=== PATIENT | male | born 1960 | race Caucasian/White ===

== ENCOUNTER 2025-05-03 13:19 | Emergency (ER) | payer MEDICARE, MEDICAID, SELFPAY ==
--- OUTSIDE RECORDS SUMMARY | 2025-05-01 09:57 | XMS_ITS | Continuity of Care Document ---
Author [facility] Address [address] [facility] [place] [address] Phone Care Team Providers Care Senior Information Security Engineer Name Role Phone Freeze Brennan GEORGES CNP Unavailable Unavaila ble Allergies, Adverse Reactions, Alerts Substance Reaction Status Criticality No Known Allergies Active No Inform ation Medications Medication Instructions Dosage Effective Dates (start - stop) Status Comments ALBUTEROL HFA 90 MCG INHALER INHALE 2 PUFFS BY MOUTH EVERY 6 HOURS NEEDED - Active Humulin R U-500 (Concentrated) Insulin 500 unit/mL subcutaneous soln INJECT 20 UNITS UNDER THE SKIN TWO TIMES A DAY WITH A MEAL - Active Pt's requests U-500. Please dispense quantity sufficient for 90 days. CareTouch Insulin Syringe 0.5 mL 31 gauge x 5/16 Use with Humulin R U-100 BID - Active METFORMIN HCL ER 500 MG TABLET TAKE 1 TABLET BY MOUTH 2 TIMES A DAY - Active GABAPENTIN 300 MG CAPSULE TAKE 1 CAPSULE BY MOUTH DAILY - Active METFORMIN HCL 500 MG TABLET TAKE 2 TABLETS BY MOUTH DAILY WITH LUNCH - Active ATORVASTATIN 40 MG TABLET TAKE 1 TABLET BY MOUTH DAILY - Active amLODIPine BESYLATE 10MG TAB TAKE 1 TABLET BY MOUTH DAILY - Active CARVEDILOL 25 MG TABLET TAKE 1 TABLET BY MOUTH TWICE A DAY WITH FOOD - Active ALLOPURINOL 300 MG TABLET TAKE 1 TABLET BY MOUTH DAILY - Active FUROSEMIDE 40 MG TABLET TAKE 1 TABLET BY MOUTH DAILY - Active AMITRIPTYLINE HCL 25 MG TAB TAKE 1 TABLET BY MOUTH EVERY NIGHT AT BEDTIME - Active POTASSIUM CHLORIDE ER 20 MEQ TABLET TAKE ONE TABLET BY MOUTH DAILY WITH FOOD - Active JARDIANCE 25 MG TABLET TAKE 1 TABLET BY MOUTH EVERY MORNING - Active LOSARTAN POTASSIUM 25 MG TAB TAKE 1 TABLET BY MOUTH DAILY - Active Lancets,Ultra Thin Check BS ACHS and prn - Active levothyroxine 75 mcg tablet TAKE 1 TABLET BY MOUTH DAILY - Active albuterol sulfate 2.5 mg/3 mL (0.083 %) solution for nebulization INHALE 1 VIAL (3ML) BY MOUTH VIA NEBULIZER FOUR TIMES A DAY - Active amoxicillin 500 mg capsule take 4 capsule by oral route 1 hour before dental procedures - Active multivitamin tablet - Active aspirin 325 mg tablet take 1 tablet by oral route every day 325 MG - Active Procedures Procedure Date X-RAY EXAM HIP UNI 2-3 VIEWS OFFICE/OUTPATIENT VISIT, EST GLYCATED HEMOGLOBIN TEST OFFICE/OUTPATIENT VISIT, EST Complex e/m visit add on GLYCATED HEMOGLOBIN TEST OFFICE/OUTPATIENT VISIT, EST Complex e/m visit add on PPPS, initial visit TRANS CARE MGMT 14 DAY DISCH Venous Ultrasound Unilateral Doppler Arterial Lower Extre mity/Upper Extremity (Raynauds Or Thorasic Outlet) GLYCATED HEMOGLOBIN TEST OFFICE/OUTPATIENT VISIT, EST OFFICE/OUTPATIENT VISIT, EST X-RAY EXAM HIP UNI 2-3 VIEWS POSTOP FOLLOW-UP VISIT NURSING FACILITY CARE, INIT SUBSEQUENT HOSPITAL CARE TOTAL HIP ARTHROPLASTY TOTAL HIP ARTHROPLASTY INITIAL HOSPITAL CARE OFFICE/OUTPATIENT VISIT, EST SUBSEQUENT HOSPITAL CARE SUBSEQUENT HOSPITAL CARE HOSPITAL DISCHARGE DAY SUBSEQUENT HOSPITAL CARE SUBSEQUENT HOSPITAL CARE INITIAL HOSPITAL CARE SUBSEQUENT HOSPITAL CARE OFFICE/OUTPATIENT VISIT, EST Doppler Arterial Lower Extre mity/Upper Extremity (Raynauds Or Thorasic Outlet) OFFICE/OUTPATIENT VISIT, NEW LESION REMOVE COLONOSCOPY OFFICE/OUTPATIENT VISIT, NEW X-RAY EXAM OF PELVIS LESION REMOVAL COLONOSCOPY DIAGNOSTIC COLONOSCOPY OFFICE CONSULTATION NURSING [facility], SUBS DEBRIDE SKIN/TISSUE DEBRIDE SKIN/TISSUE DEBRIDE SKIN/TISSUE OFFICE/OUTPATIENT VISIT, NEW DEBRIDE SKIN/TISSUE OFFICE CONSULTATION Advance Directives Directive Yes / No Effective Date File Name No Information Encounters Encounter Description Practice Location Reason(s) For Visit Diagnoses Date Provider Providers Copied on Encounter [facility], [address] [place] [address], [id number] , tel:[phone] [facility] No Information Freeze BAR PORTER Chasaozzie. [address] [place] [address], [id number], [place]. tel:[phone], [address] [place] [address], [id number] , [place] tel:[phone] [facility] No Information Freeze BAR PORTER Chasady. [address] [place], [place], [id number], [place]. tel:[phone] [facility], [address] [place] [address], [id number] , tel:[phone] [facility] No Information 5 Freeze BAR PORTER Chasady. [address] [place] [address], [id number], [place]. tel:[phone] [facility], [address] [place] [address] [address], [place], [place], [id number] , [place] tel: [phone] [facility] No Information 5 Freeze DESTINI Amin. [address] [place] [address], [id number], [place]. tel:[phone] [facility], [address] [place] [address] B, [place], [place], [id number] , [place] tel: [phone] [facility] No Information 5 Freeze DESTINI Amin. [address] [place] [address], [id number], [place]. tel:[phone] [facility], [address] [place] [address] B, [place], [place], [id number] , [place] tel: [phone] [facility] No Information 5 Freeze DESTINI Amin. [address] [place] [address], [id number], [place]. tel:[phone] OFFICE/OUTPAT IENT VISIT, [facility], [address] [place] [address] B, [place], [place], [id number] , [place] tel: [phone] [facility] Orthopaedic s Musculoskele junior Pain (chief complaint) Trochanteric bursitis of left hipChronic left-sided low back pain, unspecified whether sciatica presentOther chronic pain 5 Natalie Mtz. [address], [place], [place], [id number], [place]. tel:[phone] Referring Provider: Brennan Easley CNP, [address] [place] [address], [address]. tel:[phone] OFFICE/OUTPAT IENT VISIT, [facility], [address] [place] [address] B, [place], [place], [id number] , [place] tel: [phone] [facility] follow up (chief complaint) Acquired hypothyroidi smType 2 diabetes mellitus with diabetic polyneuropat hy, with long-term current use of insulinChron ic gout without tophus, unspecified cause, unspecified siteAcute kidney failure, unspecifiedT ype 2 diabetes mellitus with foot ulcer, with long-term current use of insulinType 2 diabetes mellitus with hyperglycemi a, with long-term current use of insulinEssen tial (primary) hypertension Hyperlipidem ia LDL goal <100 4 Freeze DESTINI Amin. [address] [place] [address], [id number], [place]. tel:[phone] Referring Provider: Brennan Easley CNP, [address] [place] [address], [address]. tel:[phone] [facility], [address] [place] [address] B, [place], [place], [id number] , tel:[phone] [facility] No Information 4 Freeze DESTINI Amin. [address] [place] [address], [id number], [place]. tel:[phone] OFFICE/OUTPAT IENT VISIT, [facility], [address] [place] [address] B, [place], [place], [id number] , tel:[phone] [facility] follow up (chief complaint) Type 2 diabetes mellitus with foot ulcer, with long-term current use of insulinType 2 diabetes mellitus with hyperglycemi a, with long-term current use of insulinEssen tial (primary) hypertension Hyperlipidem ia LDL goal <100Acquired hypothyroidi smType 2 diabetes mellitus with diabetic polyneuropat hy, with long-term current use of insulinChron ic gout without tophus, unspecified cause, unspecified siteAcute kidney failure, unspecified Sep- 4 Freeze DESTINI Amin. [address] [place] [address], [id number], [place]. tel:[phone] Referring Provider: Brennan Easley CNP, [address] [place] [address], [address]. tel:[phone], [address] [place] [address] B, [place], [place], [id number] , [place] tel:[phone] [facility] No Information 4 Freeze DESTINI Amin. [address] [place] [address], [id number], [place]. tel:[phone] [facility], [address] [place] [address] [address], [place], [place], [id number] , [place] tel: [phone] [facility] No Information 4 Freeze DESTINI Amin. [address] [place] [address], [id number], [place]. tel:[phone] [place] [address], [address] [place] [address] [address], [place], [place], [id number] , [place] tel: [phone] [facility] ADLs (chief complaint)me dicare preventive (chief complaint) Type 2 diabetes mellitus with foot ulcer, with long-term current use of insulinType 2 diabetes mellitus with hyperglycemi a, with long-term current use of insulinEssen tial (primary) hypertension Hyperlipidem ia LDL goal <100Acquired hypothyroidi Medicare annual wellness visit, initialType 2 diabetes mellitus with diabetic polyneuropat hy, with long-term current use of insulinLong term (current) use of insulinMorbi d (severe) obesity due to excess caloriesAcut e kidney failure, unspecifiedC hronic gout without tophus, unspecified cause, unspecified site 4 Freeze DESTINI Amin. [address] [place] [address], [id number], [place]. tel:[phone] Referring Provider: Brennan Easley DESTINI, [address] [place] [address], [address]. tel:[phone] [facility] MGMT 14 DAY DISCH [facility], [address] [place] [address] [address], [place], [place], [id number] , [place] tel:[phone] [facility] TCM (chief complaint) Elevated brain natriuretic peptide (BNP) levelAbnorma l echocardiogr amSepsis with acute renal failure without septic shock, due to unspecified organism, unspecified acute renal failure typeSevere sepsis without septic shockAcute kidney failure, unspecifiedN on-pressure chronic ulcer of other part of right foot with unspecified severity 4 Tracee Amin. [address] [facility], [place], [place], [id number], [place]. tel:[phone] Referring Provider: Jazmynozzie Easley DESTINI, [address] [facility], [place], [address]. tel:[phone] [facility], [address] [facility] [address], [place], [place], [id number] , [place] tel:[phone] [facility] IP No Information 4 Chito Lyon. [address] [place] [address], [address], [place]. tel:[phone] Referring Provider: Camron Dale MD, [address] [place] [address] 2, [place], [address]. tel:[phone] [facility], [address] [facility] [address], [place], [place], [address] , [place] tel:[phone] [facility] IP No Information 4 Chito Lyon. [address], [address], [place]. tel:[phone] Referring Provider: Camron Dale MD, [address] [place] [address] 2, [place], [address]. tel:[phone] OFFICE/OUTPAT IENT VISIT, EST [employer] [facility], [address] [facility] [address], [place], [place], [id number] , [place] tel:[phone] [facility] est care (chief complaint) Type 2 diabetes mellitus with hyperglycemi a, with long-term current use of insulinLong term (current) use of insulinEssen tial (primary) hypertension Type 2 diabetes mellitus with foot ulcer, with long-term current use of insulinNon-p ressure chronic ulcer of other part of unspecified foot with unspecified severityNon- pressure chronic ulcer of other part of right foot with unspecified severityHype rlipidemia LDL goal <100Acquired hypothyroidi sm Dec-0 3 Freeze DESTINI Amin. [address] [facility], [place], [place], [id number], [place]. tel:[phone] Referring Provider: Sonijatinder Easley BAR PORTER, [address] [facility], [place], [address]. tel:[phone] [facility], [address] [place] [address] [address], [place], [place], [id number] , [place] tel:[phone] [facility] Orth[facility] No Information 3 Damon Parmar. [address] [facility] [address], [place], [place], [id number], [place]. tel:[phone] OFFICE/OUTPAT IENT VISIT, [facility], [address] [facility] [address], [place], [place], [id number] , [place] [phone] [facility] Orthopaedic s Musculoskele junior Pain (chief complaint) Left hip pain 2 Damon Parmar. [address] [facility] [address], [place], [place], [id number], [place]. tel:[phone] Referring Provider: Ghulam Finn, [address] [facility] [address], [place], [address]. tel:[phone] [facility], [address] [place] [address] [address], [place], [place], [id number] , [place] tel:[phone] [facility] s Post-Op (chief complaint) Arthritis of left hip 2 Natalie Mtz. [address] [facility] [address], [place], [place], [id number], [place]. tel:[phone] Referring Provider: Smith Estrada PA-C, [address], [place], [address]. tel:[phone] [facility], [address] [place] [address] [address], [place], [place], [id number] , [place] tel:[phone] [facility] No Information 2 Chilo FERRYBOAT OPERATOR-BAR PORTER Petra. [address] [facility] [address], [place], [place], [id number], [place]. tel:[phone] Referring Provider: Petra Woo FERRYBOAT OPERATOR-BAR PORTER, [address], [place], [address]. tel:[phone] [facility], [address] [facility] [address], [place], [place], [address] , [place] tel:[phone] [facility] IP No Information 2 Jonathan Lilly. [address], [place], [id number], [place]. tel:[phone] Referring Provider: Chuyita Castillo DO, [address] [facility], [place], [address]. [phone] [facility], [address] [place] [address] [address], [place], [place], [id number] , [place] tel:[phone] [facility] IP No Information 2 Damon Parmar. [address] [facility] [address], [place], [place], [id number], [place]. tel:[phone] Referring Provider: Ghulam Finn, [address] [facility] [address], [place], [address]. tel:[phone] [facility], [address] [place] [address] [address], [place], [place], [id number] , [place] tel:[phone] [facility] IP No Information 2 Natalie Mtz. [address] [facility] [address], [place], [place], [id number], [place]. tel:[phone] Referring Provider: Smith Estrada PA-C, [address], [place], [address]. tel:[phone] [facility], [address] [place] [address] [address], [place], [place], [address] , [place] tel: [phone] [facility] IP No Information 2 Bharat Perez. [address] [facility], [place], [place], [id number], [place]. tel:[phone] Referring Provider: Ana Nicholson, [address] [facility], [place], [address]. tel:[phone] [place] [address], [address] [place] [address] [address], [place], [place], [address] , [place] tel: [phone] [facility] Advanced Orthopaedic s No Information 2 Damon Parmar. [address] [facility] [address], [place], [place], [id number], [place]. tel:[phone] OFFICE/OUTPAT IENT VISIT, [facility], [address] [facility] [address], [place], [place], [address] , [place] tel: [phone] [facility] Orthopaedic s Musculoskele junior Pain (chief complaint) Arthritis of left hip 1 Damon Parmar. [address] [facility] [address], [place], [place], [id number], [place]. tel:[phone] Referring Provider: Ghulam Jose MD E, [address] [facility] [address], [place], [address]. tel:[phone] SUBSEQUENT [facility], [address] [place] [address] [address], [place], [place], [address] , [place] tel: [phone] [facility] IP No Information 1 Samm Nj. [address], [place], [id number], [place]. tel:[phone] Referring Provider: Ondina Quijano MD, [address] [place], [address]. tel:[phone] [facility], [address] [place] [address] [address], [place], [place], [address] , [place] tel: [phone] [facility] IP No Information 1 Cassius Oconnell. [address], [place], [id number], [place]. tel:[phone] Referring Provider: Kourtney Hammonds, [address] [facility], [place], [address]. tel:[phone] INITIAL HOSPITAL CARE [facility], [address] [place] [address] [address], [place], [place], [address] , [place] tel: [phone] [facility] IP No Information 1 Castillo DO Boogie. [address], [place], [id number], [place]. tel:[phone] Referring Provider: Chuyita Castillo DO, [address] [place], [address]. tel:[phone] OFFICE/OUTPAT IENT VISIT, [facility], [address] [place] [address] [place], [address] , [place] tel:[phone] [facility] Vascular Center neuropathy (chief complaint)di scuss test results (chief complaint)Co mments (chief complaint) Peripheral arterial occlusive disease 1 Rikki Lopez. [address] [place] [address], [facility], [place]. tel:[phone] Referring Provider: John Best MD, [address] [place] [address], [facility]. tel:[phone] [facility], [address] [place] [address] [address] [place], [address] , [place] tel:[phone] [facility] OP No Information 1 Rikki Lopez. [address] [place] [address], [address], [place]. tel:[phone] Referring Provider: John Best MD, [address] [place] [address], [facility]. tel:[phone] OFFICE/OUTPAT IENT VISIT, [facility], [address], [place], [place], [address] , [place] tel:[phone] [facility] neuropathy (chief complaint)Co mments (chief complaint) Peripheral arterial occlusive disease 1 Rikki Lopez. [address] [place], [address], [place]. tel:[phone] Referring [place]: [place], [address] [place], [address]. tel:[phone] [facility], [address] [facility] [address], [place], [place], [address] , [place] tel:[phone] [facility] OP No Information 0 Rebeka Shearer. [address], [place], [place], [address], [place]. tel:[phone] Referring Provider: Manfred Salazar, [address], [place], [address]. tel:[phone] OFFICE/OUTPAT IENT VISIT, [facility], [address] [facility] [address], [place], [place], [address] , [place] tel:[phone] [facility] Advanced Orthopaedic s Musculoskele junior Pain (chief complaint) Arthritis of left hip 0 Damon Parmar. [address], [place], [place], [address], [place]. tel:[phone] Referring Provider: Ghulam Finn, [address], [place], [address]. tel:[phone] [facility], [address], [place], [place], [address] , [place] tel:[phone] [facility] OP No Information 8 Rebeka Shearer. [address], [place], [place], [address], [place]. tel:[phone] Referring Provider: Manfred Salazar [address] [facility] [address], [place], [address]. tel:[phone] [facility], [address] [place] [address] [address], [place], [place], [address] , [place] tel:[phone] [facility] No Information 0 7 Rebeka Shearer. [address] [facility] [address], [place], [place], [address], [place]. tel:[phone] Referring Provider: Manfred Salazar, [address] [facility] [address], [place], [address]. tel:[phone] OFFICE CONSULTATION [employer] [facility], [address] [place] [address] [address], [place], [place], [address] , [place] tel:[phone] [facility] No Information 3 7 Rebeka Shearer. [address] [facility] [address], [place], [place], [address], [place]. tel:[phone] Referring Provider: Manfred Salazar, [address] [facility] [address], [place], [address]. tel:[phone] NURSING [facility], [facility], [address] [place] [address] [address], [place], [place], [address] , [place] tel:[phone] [facility] No Information 6 Vito Peralta. [facility] [address], [place], [place], [address], [place]. tel:[phone] Referring Provider: Fabian Finn, [facility] [address] [facility] B, [place], [address]. tel:[phone] [facility], [address] [place] [address] [address], [place], [place], [address] , [place] tel:[phone] [facility] No Information 7-201 6 Woo FERRYBOAT OPERATOR-BAR PORTER Petra. [address], [place], [place], [address], [place]. tel:[phone] Referring Provider: Petra LEWIS, [address] [facility], [place], [address]. tel:[phone] [place] [address] [employer] [facility], [address] [place] [address] [address], [place], [place], [address] , [place] tel:[phone] [facility] No Information 6 Woo FERRYBOAT OPERATOR-BAR PORTER Petra. [address], [place], [place], [address], [place]. tel:[phone] Referring Provider: Petra LEWIS, [address] [address], [place], [address]. tel:[phone] [place] [address] [employer] [facility], [address] [place] [address] [address], [place], [place], [address] , [place] tel:[phone] [facility] No Information 6 Woo FERRYBOAT OPERATOR-BAR PORTER Petra. [address], [place], [place], [address], [place]. tel:[phone] Referring Provider: Petra LEWIS, [address], [place], [address]. tel:[phone] [facility] OFFICE/OUTPAT IENT VISIT, [facility], [address] [place] [address] [address], [place], [place], [address] , [place] tel:[phone] [facility] No Information 6 Woo FERRYBOAT OPERATOR-BAR PORTER Petra. [address], [place], [place], [address], [place]. tel:[phone] Referring Provider: Petra LEWIS, [address], [place], [address]. tel:[phone] [facility] OFFICE CONSULTATION [employer] [facility], [address] [place] [address] [address], [place], [place], [address] , [place] tel:[phone] [facility] No Information 6 No Information Family History Family Member Type Diagnosis Age At Onset Problem Family history of Thyroid di sorder Problem Family history of Hypertensi on Maternal uncle Problem Cancer, unknown type Mother Problem Stroke Brother Problem Diabetes mellitus Mother Problem Cancer, brain Immunizations Vaccine Date Status Comments SARS-COV-2 (COVID-19) vaccin e, vector non-replicating, recombinant spike protein-Ad26, preservative free, 0.5 mL (IMGuest) administered Source: Other Provid er Payers Payer name Insurance type Covered libertarian ID Authoriza agus(s) [employer] Medicare Complete 16 [id number] Social History Type Description Quantity Date Captured Comments Alcohol Use Details Unknown Caffeine Use Details Unknown Tobacco Use Status No Information Smoking Status No Information Sex Male Chief Complaint And Reason For Visit No Information Reason For Referral Reason For Referral No Information Plan Of Treatment Date Type Action Status Goal BMP. Due on due Goal Diabetes screeni ng. Due on due Goal Urinalysis. Due on due Goal ECG. Due on due Goal Lipid Panel. Due on due Goal Urinalysis. Due on due Goal BMP. Due on due Goal Lipid Panel. Due on due Goal Diabetes screeni ng. Due on due Goal ECG. Due on due Goal ECG. Due on due Goal BMP. Due on due Goal Diabetes screeni ng. Due on due Goal Lipid Panel. Due on due Goal Urinalysis. Due on due Goal Urinalysis. Due on due Goal Lipid Panel. Due on due Goal Diabetes screeni ng. Due on due Goal BMP. Due on due Goal ECG. Due on due Goal ECG. Due on due Goal BMP. Due on due Goal Diabetes screeni ng. Due on due Goal Lipid Panel. Due on due Goal Urinalysis. Due on due Goal Urinalysis. Due on due Goal Diabetes screeni ng. Due on due Goal Lipid Panel. Due on due Goal BMP. Due on due Goal ECG. Due on due Goal ECG. Due on due Goal Lipid Panel. Due on due Goal Diabetes screeni ng. Due on due Goal BMP. Due on due Goal Urinalysis. Due on due Goal ECG. Due on due Goal Lipid Panel. Due on due Goal Diabetes screeni ng. Due on due Goal BMP. Due on due Goal Urinalysis. Due on due Goal Urinalysis. Due on 24 due Goal Diabetes screeni ng. Due on due Goal ECG. Due on due Goal Urinalysis. Due on 23 due Goal Diabetes screeni ng. Due on due Goal BMP. Due on due Goal ECG. Due on due Referral Ordered: Scottie Leyva MD -Nephrology (related to Acute kidney failure, unspecified) ordered Referral Referred To: Scottie Leyva MD [address] [place], [address] [phone] Ordered: Referrals: Nephrology. Scottie Leyva MD. Evaluate and treat ordered Referral Ordered: Jj Melgoza DO -Cardiology (related to Elevated brain natriuretic peptide (BNP) level) ordered Referral Referred To: Jj Melgoza DO [address] [place], [address] [phone] Ordered: Referrals: Cardiology. Jj Melgoza DO. Evaluate and treat ordered Referral Ordered: Wound Clinic (related to Type 2 diabetes mellitus with foot ulcer, with long-term current use of insulin) ordered Referral Ordered: Referrals: Wound Clinic. Evaluate and treat ordered Referral Ordered: X-RAY EXAM HIP UNI 2-3 VIEWS ordered Referral Ordered: X-RAY EXAM OF PELVIS ordered Future Order: Radiology Order VL Doppler(Arterial),PVR,LARRY/TBI LE Bilat (LTD) ([id number]), Ordered on: Ordered History Of Present Illness Encounter Date Complaint History Of Prese nt Illness Musculoskeletal Pain Onset: grad ual. Duration: varies. Severity level is 5. It occurs constantly. Location: left (lateral) hip. There is no radiation. The pain is aching, throbbing and sore. The pain is aggravated by bending, climbing (and descending) stairs, lifting, movement, sitting, walking and standing. The pain is relieved by OTC medicines (acetaminophen) and rest. Associated symptoms include decreased mobility, joint instability, joint tenderness, numbness, swelling, tingling in the legs, weakness and constant numbness and tingling. Pertinent negatives include crepitus and popping. Additional information: Left hip pain and swelling. H/o Left ANDREA 01/26/2022. States he's not able to stand. Feels like he has a bulge and has a constant pain. Recently has felt like he can feel the hardware because his skin is so thin. Difficulty getting comfortable at all times. follow up Pt presents toda y for 3 month f/u on chronic conditions. Weight is up 8 lbs. Last A1c was 8.4. Had comprehensive labs in Dec. Does not check BP or BS at home. Checking feet daily. Last eye exam was a couple of yrs ago. Does not follow a diet or exercise. Denies gout attack since last appt. Has not seen Cardio recently. Gabapentin is helping with neuropathy. Using Albuterol inh monthly and nebs in the winter or if he is sick. Referred to Nephro at January appt for worsening renal failure. Never made appt. Still has not made appt. follow up Pt presents toda y for 6 month f/u on chronic conditions. Weight is up 6 lbs. Last A1c was 8.5. Had comprehensive labs in Dec. Does not check BP or BS at home. Checking feet daily. Last eye exam was a couple of yrs ago. Does not follow a diet or exercise. Denies gout attack since last appt. Seeing Cardio every 6 months. Gabapentin is helping with neuropathy. Using Albuterol inh monthly and nebs int he winter. Referred to Nephro at last appt for worsening renal failure. Never made appt. Reports not having any energy and not wanting to do things since changing Lisinopril to Losartan while hospitalized in Nov. ADLs Pt presents toda y for 3 month f/u on chronic conditions. Weight is down 15 lbs. Last A1c was 8.2. Had comprehensive labs last week. Checking BP at home. BP has been 140's/?. Does not check BS at home. Checking feet daily. Last eye exam was a couple of yrs ago. Does not follow a diet or exercise. Denies gout attack since last appt. Now seeing Cardio every 6 months. Gabapentin is helping with neuropathy. Unsure of why he is taking Amitriptyline. Has not had to use Albuterol inh or nebs since the beginning of the year. Had colonoscopy in 2020.Patient requires assistance with the following:Eating No Meal Prep NoToileting No Finances NoDressing No Shopping NoGrooming No Transportation NoBathing No Laundry NoPhone Use No Housekeeping NoMedication No medicare preventive The patient has not felt depressed and has had interest and pleasure doing things recently. The ''Up and Go'' test took less than 30 seconds, butthe patient needs help with activities of daily living. The patient is not at risk for falls. The patient has fallen 3 times in the last year. The fall(s) did not result in injury. The patient has smoke detectors in the home. Patient reports using a seatbelt in vehicles. Patient reports recent weight loss. Patient reports taking a multivitamin daily. Relevant history is negative for tobacco use and alcohol use. [facility] Presented to [facility] ED on 11/12 with c/o vomiting. Reported FUNG, dizziness, and nausea x 5 weeks. Vomiting began day of arrival. Described a slight FUNG encompassing his whole head. Given IVF, Reglan IV, and Tylenol IV. UA negative for UTI. WBCs 28.6, hgb 11.9, Cre 2.30, and GFR 44. Rapid flu and COVID were negative. CT of the head was unremarkable. CXR showed mild pulmonary vascular congestion. CT abd and pelvis showed irregular cutaneous thickening of the anterior abd wall. Direct visualization was recommended. There was a nodular area at the R lung base, favored to be atelectasis. F/u chest CT was recommended for 3-6 months. Pt was febrile at 37.5. Sepsis protocol was initiated. BC x 2 ordered. Started on IV Vanco and IV Zosyn. Pt reported that he lost a dental filling and was concerned that it may be infected. Also reported a R heel wound that he had been treating at home x 5-6 weeks. Admitted for severe sepsis. Lisinopril and Allopurinol were held for BRENDON. Foot x-ray showed a linear soft tissue defect superficial to the calcaneus. Renal function worsened. Lisinopril and Allopurinol were held and Gabapentin was decreased. Nephro consulted. Podiatry was also consulted for foot wound. SOB worsened w/o O2. Blood cxs negative. Wound cx grew few Gram-positive cocci. MRSA cx negative. ATBs changed to Vanco and Cefepime. Zosyn stopped. Lasix was resumed. Echo showed mild increased wall thickness, EF 55-60% with a normal RSVP of 30. Did not qualify for home O2. Started on Losartan. Day of d/c, WBCs 13.8, Cre 1.80, and GFR 38. D/c'ed home on 11/17 with Augmentin. Recommended Cardio and Pulm f/u as outpt. Finished Augmentin a few days ago. Saw Dr. Duff the day after d/c. Scheduled to f/u next month. Could not afford to f/u this month. Keeping foot dry. Changing dressing every other day. is using a cream prescribed by Dr. Duff. Elevating legs while sitting. Has been taking both Lisinopril and Losartan. est care New pt. Previous PCP is Edith Acevedo CNP. Last seen a couple of months ago. Pt is . Has 3 children. 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 PMH is significant for acid reflux which he has been on prescription med in the past. No longer having sx's. Believes he was on a medication for anxiety and depression in the past. Has had skin CA spots removed from his leg. No recent Derm f/u. Dx'ed with DM in 1999 or 2000. Does not check BS at home. has pt on a low carb, no sugar diet. Not exercising. is checking feet and caring for wound on his heel. Last eye exam was 2 yrs ago. Believes last A1c was around 9. Prescribed Ozempic. Took Ozempic x 3 weeks and developed nausea and diarrhea. Believes last labs were about 6 months ago. Being treated for HLIP, hypothyroid, and HTN. Does not check BP at home. Musculoskeletal Pain Onset: sudd en. Duration: varies. Severity level is 10. Location: left (groin) hip. Context: there is an injury. Trauma type: fall on 06/26/2022. The pain is aggravated by movement, sitting and walking. The pain is relieved by rest. Associated symptoms include decreased mobility, limping, numbness, tingling in the legs and weakness. Additional information: reports lawn chair collapsed on 06/26/22, no pain afterwards,, he later felt a pull in his groin when picking up his grandchild. Over the next few days reported sharp pulling pain in the groin, nausea, vomiting. Went to the ER 06/[address] of ABD/Pelvis. h/o Left ANDREA 01/26/22. Post-Op The patient repo rts no pain. The patient is using medication as prescribed and having good response. The patient reports no complications with the wound. The patient can ambulate with rolling walker. Associated symptoms include swelling. Pertinent negatives include chills and fever. Additional information: S/P Left ANDREA on 01/27. Patient d/c from [facility] to [facility] for inpt rehab, continues with home PT ([facility]). Patient is using a walker to assist with ambulation. Musculoskeletal Pain Onset: grad ual. Duration: varies. Severity level is 4. Location: left hip. The pain is aggravated by movement, walking and standing. The pain is relieved by OTC medicines (ibuprofen). Associated symptoms include decreased mobility, joint instability, joint tenderness, swelling and weakness. Pertinent negatives include popping. Additional information: 1 year f/u, presents with worsening Left hip pain. States his last Hb A1c was 7. He wants to schedule surgery. With standing and activity his apple reaches an 8/10. Comments This is a 60-yea r-old male with a stated history of peripheral arterial disease. He was scheduled to have left hip surgery and is also waiting for his hemoglobin A1c to improve before being cleared by his orthopedic surgeon. I repeated an LARRY PVR study which shows normal perfusion to the bilateral lower extremities. From a vascular standpoint I would not have any concerns about wound healing whatsoever. He has full clearance from a vascular standpoint. discuss test results Patient her e to discuss LARRY/PVR done on 05/16/21 Rt is 1.16 and left is 1.18. Patient states there has been no change in his legs neuropathy with pain in the left hip for which surgery is in the near future. neuropathy Comments This is a 60-yea r-old male who was seen and evaluated by Orthopedic surgery. He needs to have a left total hip replacement and there was some concern because of a history of peripheral arterial occlusive disease. He has not had any testing in about 4 years. His pulses were nonpalpable on exam. He otherwise denies any claudication has not had any vascular interventions in the past. I told him that having a noninvasive LARRY study should help determine his level of perfusion. Typically even if he does have occlusive disease this should not significantly affect whether not he can have hip surgery. neuropathy Onset was gradua l and it was gradual. Severity level is moderate. The context includes trauma, diabetes, hypertension and obesity. Symptom is aggravated by movement and standing. Associated symptoms include motor weakness, paresthesia and tingling. Additional information: Patient is a diabetic with neuropathy. He dropped a cement block on his left foot 6 weeks ago and has purplish big toe. There is a dark eraser size area on top of the second toe lt foot. Feet are bilateral swollen and reddish in color.. DJD lt hip. Musculoskeletal Pain Onset: grad ual. Duration: varies. Severity level is 6. The problem is worsening. Location: left hip. The pain is aggravated by movement, walking and standing. The pain is relieved by ice, OTC medicines (ibuprofen) and rest. Associated symptoms include decreased mobility, joint tenderness, popping and weakness. Pertinent negatives include joint instability, locking and swelling. Additional information: Longstanding Left hip pain, reports exacerbation of his symptoms 4 years ago after his back surgery/fusion. He has a h/o DJD. He can only walk a short distance before his leg become fatigued. Functional Status Date Functional Assessmen t No Information Instructions Date Instruction Additional Infor smiley Patient presents for evaluation of left and leg pain. He is 2 and half years status post left total hip replacement. He was doing well up until about 6 months ago when he started noticing some worsening lateral hip pain which radiate down the leg. He also notes numbness and tingling of the left leg and pain which shoots all the way down to the. Patient does note a history of spinal fusion he believes it was L5-S1. He has not followed up with his back surgeon as he thinks he may have retired. He was concerned that there might be something wrong with the hip. On physical exam he has tenderness to palpation over the lateral aspect of the hip in the area of the ITB band and trochanteric bursa. He also has weakness with hip flexion and pain with straight leg raise.I reviewed and independently interpreted x-rays taken office today which show a left total hip replacement with components in good position. There is noted a very large spur in superior iliac crest in the area of the ITB band attachment. There is also noted degenerative changes of the lumbar spine above the area of his spinal fusion. No signs of loosening. No fracture, dislocation, or loose bodies noted on x-ray.We discussed at this time I think his pain is coming from a combination of things he has significant degenerative changes to his lumbar spine above the area of his previous fusion which I think is causing a lot of his symptoms including the shooting pain down the legs and numbness tingling. He does also have a large spur at the ITB band surgeon which can cause pain and inflammation.Discussed with patient at this time I recommended new referral to a spinal surgeon to evaluate his lumbar spine and see if there is anything else to be done to help him with this pain as well as I recommended we could do a corticosteroid injection to ITB band in the area of the trochanteric bursa to help with pain and inflammation. Patient declined both of these treatments he feels that he is not interested in any further surgery and injections not been helpful in the past.He discussed at this time he is going to try to lose some weight and be more active and see if that improves his pain. We also discussed some daily stretching and strengthening for the ITB band as well as he can use topical anti-inflammatories such as Voltaren gel. We discussed at this point he can give us a call back if he would like to pursue further treatment or if he would like a referral to a health plan specialist. Related to Other chronic pain At goal, LDL 12. Rep eat comprehensive labs in Dec. Continue Lipitor. Related to Hyperlipidemia LDL goal <100 Controlled. Repeat c omprehensive labs in Dec. Continue Losartan, Amlodipine, and Carvedilol. Related to Essential (primary) hypertension Uncontrolled. A1c do wn to 8.3 from 8.4. Repeat comprehensive labs in Dec. Continue Humulin, Jardiance, and Metformin. F/u in 3 months. Related to Type 2 diabetes mellitus with hyperglycemia, with long-term current use of insulin Uncontrolled. A1c do wn to 8.3 from 8.4. Repeat comprehensive labs in Dec. Continue Humulin, Jardiance, and Metformin. F/u in 3 months. Related to Type 2 diabetes mellitus with foot ulcer, with long-term current use of insulin Worsening. Cre up to 2.10 from 1.90 and GFR down to 32 from 36 . Referred to Nephro again. Related to Acute kidney failure, unspecified Uncontrolled. A1c do wn to 8.3 from 8.4. Repeat comprehensive labs in Dec. Continue Humulin, Jardiance, and Metformin. F/u in 3 months. Related to Type 2 diabetes mellitus with diabetic polyneuropathy, with long-term current use of insulin Controlled. TSH 3.37 . Continue Synthroid. Repeat comprehensive labs in Dec. Related to Acquired hypothyroidism Controlled. Uric aci d 5.3. Continue Allopurinol. Related to Chronic gout without tophus, unspecified cause, unspecified site Worsening. Cre up to 2.10 from 1.90 and GFR down to 32 from 36 . Referred to Nephro. Related to Acute kidney failure, unspecified Controlled. Uric aci d 5.3. Continue Allopurinol. Related to Chronic gout without tophus, unspecified cause, unspecified site Controlled. TSH 3.37 . Continue Synthroid. Repeat comprehensive labs in Dec. Related to Acquired hypothyroidism At goal, LDL 12. Rep eat comprehensive labs in Dec. Continue Lipitor. Related to Hyperlipidemia LDL goal <100 Controlled. Repeat c omprehensive labs in Dec. Continue Losartan, Amlodipine, and Carvedilol. Declined changing Losartan to different med d/t fatigue. Related to Essential (primary) hypertension Uncontrolled. A1c do wn to 8.4 from 8.5. Repeat comprehensive labs in Dec. Continue Humulin, Jardiance, and Metformin. F/u in 3 months. Related to Type 2 diabetes mellitus with hyperglycemia, with long-term current use of insulin Uncontrolled. A1c do wn to 8.4 from 8.5. Repeat comprehensive labs in Dec. Continue Humulin, Jardiance, and Metformin. F/u in 3 months. Related to Type 2 diabetes mellitus with foot ulcer, with long-term current use of insulin Uncontrolled. A1c do wn to 8.4 from 8.5. Repeat comprehensive labs in Dec. Continue Humulin, Jardiance, and Metformin. F/u in 3 months. Related to Type 2 diabetes mellitus with diabetic polyneuropathy, with long-term current use of insulin Controlled. Uric aci d 5.3. Continue Allopurinol. Related to Chronic gout without tophus, unspecified cause, unspecified site General physical com pleted. Advised pt to follow a well balanced diet and exercise. Encouraged routine dental and eye exams. Declined PNA vaccine. Related to Medicare annual wellness visit, initial Improving. Encourage d diet and exercise. Related to Morbid (severe) obesity due to excess calories Uncontrolled. A1c up to 8.5 from 8.2 Repeat comprehensive labs in Dec. Continue Humulin, Jardiance, and Metformin. F/u in 3 months. Related to Type 2 diabetes mellitus with diabetic polyneuropathy, with long-term current use of insulin Worsening Cre up to 1.90 from 1.80 and GFR down to 36 from 38 in Nov. Referred to Nephro. Related to Acute kidney failure, unspecified Controlled. TSH 3.37 . Continue Synthroid. Repeat comprehensive labs in Dec. Related to Acquired hypothyroidism Uncontrolled. A1c up to 8.5 from 8.2 Repeat comprehensive labs in Dec. Continue Humulin, Jardiance, and Metformin. F/u in 3 months. Related to Type 2 diabetes mellitus with foot ulcer, with long-term current use of insulin Uncontrolled. A1c up to 8.5 from 8.2 Repeat comprehensive labs in Dec. Continue Humulin, Jardiance, and Metformin. F/u in 3 months. Related to Type 2 diabetes mellitus with hyperglycemia, with long-term current use of insulin At goal, LDL 12. Rep eat comprehensive labs in Dec. Continue Lipitor. Related to Hyperlipidemia LDL goal <100 Controlled. Repeat c omprehensive labs in Dec. Continue Losartan, Amlodipine, and Carvedilol. Related to Essential (primary) hypertension Hospital records rev iewed. Followed by Dr. Duff. Related to Non-pressure chronic ulcer of other part of right foot with unspecified severity Hospital records rev iewed. Repeat labs ordered. Finished Augmentin. Related to Sepsis with acute renal failure without septic shock, due to unspecified organism, unspecified acute renal failure type Hospital records rev iewed. Cre 1.80 and GFR 38 at d/c. Repeat labs ordered. Will clarify that pt is following up with Nephro. Related to Acute kidney failure, unspecified Hospital records rev iewed. Referred to Cardio. Related to Elevated brain natriuretic peptide (BNP) level Hospital records rev iewed. Referred to Cardio. Related to Abnormal echocardiogram Comprehensive labs o rdered. Continue Synthroid. Related to Acquired hypothyroidism Controlled. Comprehe nsive labs ordered. Continue Lisinopril, Amlodipine, and Carvedilol, all refilled. Related to Essential (primary) hypertension Comprehensive labs o rdered. Continue Lipitor, refilled. Related to Hyperlipidemia LDL goal <100 Uncontrolled. A1c do wn to 8.2 from 9 per pt. Comprehensive labs ordered. Continue Humulin and Metformin, both refilled. F/u in 3 months. Related to Type 2 diabetes mellitus with hyperglycemia, with long-term current use of insulin Uncontrolled. A1c do wn to 8.2 from 9 per pt. Comprehensive labs ordered. Continue Humulin and Metformin, both refilled. F/u in 3 months. Referred to Wound Care. Related to Type 2 diabetes mellitus with foot ulcer, with long-term current use of insulin Brandyn is a 61-year -old male, with history of what he calls left hip pain that started after a fall. The patient told me that he was lifting his 55 lb grandson and felt pain on the lower back. When he has to lost balance and fell on the side. He has been having pain more over the iliac crest than the hip itself. On physical examination he has good range of motion of his hip but weakness on hip flexors.We review x-ray findings. He is having pain over the spurs that he has in the iliac crest rather than the hip.I told him that the fall probably aggravated his lower back issues. I told him that I could send him to pain management but he declined. I recommend him to see his primary care physician because he is having blurred vision and he is unsteady. Patient agreed with the plan all the questions were answered. Follow-up as needed Related to Left hip pain Patient returns for recheck of left hip 10 days status post left total hip replacement. He reports almost no pain at this time only mild muscle soreness. He was recently discharged from [facility]-way facility. He has had his 1st evaluation with home physical therapy and they plan to start home PT sessions early next week. He has been ambulating with walker. At this point I want the patient to continue working with physical therapy and performing home exercises on daily basis. We discussed that in the next 2-3 weeks I would like to transition to outpatient physical therapy. I placed a 4 x 4 in the patient's groin fold to reduce moisture buildup. Patient was instructed to changes on a daily basis for the next 2 weeks.He should follow up in our office in 3 weeks for recheck after physical therapy. Related to Arthritis of left hip I discussed with the patient and his the nature of his condition.We review x-ray findings that show severe arthritic changes of the left hip joint. There is a discrepancy at length the physical examination is about 3.5 cm.He was able to bring down his hemoglobin A1c to 7 and has lost 10 lb with a BMI of 40.We discussed treatment options and a total hip arthroplasty with anterior approach. We discussed with Amy our staff weapons officer the risks and benefits of the procedure including but not limited to anesthesia problems, infection, clots, stiffness, residual pain, fractures, loosening, nerve injuries, vascular injuries, losing the leg and . They voiced understanding of the risk and decided to undergo a surgical procedure. Related to Arthritis of left hip I discussed with the patient at length the nature of his condition.We review x-ray findings that show severe arthritic changes of his left hip.We discussed treatment options including conservative treatment and surgical treatment. At this point he is not a good surgical candidate because his hemoglobin A1c is over 7.I told him that he has to work with his primary care physician to improve it to get it closer to 7 so we can see him back and schedule a total hip arthroplasty. He agreed with the plan all the questions were answered.The patient at this point is not interested in surgical treatment. Related to Arthritis of left hip Assessments Type Assessment Date No Information Patient Care Teams Name Effective Dates (start - stop) Status Members No Information
[2025-05-03] VITALS (49 sets, daily range): BP systolic 148–184; BP diastolic 65–115; PULSE 61–117; RESP 18; TEMP 36.6; O2SAT 89–100; BMI 51.5
--- NOTE | 2025-05-03 13:28 | ECG_ITS ---
[facility] Test Date: 2025-05-03 Pat Name: JOSE ELIAS ONEAL Department: Room: - Gender: Male Die Sinker: : 1960 Requested By: [id number] Order Number: [id number] Reading MD: RYLEY BETHEA M.D. Measurements Intervals [place] Rate: 68 P: 13 NE: 180 QRS: 7 QRSD: 94 T: 32 QT: 394 QTc: 410 Interpretive Statements 1100 Sinus rhythm 8102 Low QRS voltage in chest leads Poor R wave progression 9150 abnormal ECG No previous ECG available for comparison Electronically Signed On 05-03-2025 18:00:19 EDT by RYLEY BETHEA M.D.
--- NOTE | 2025-05-03 13:28 | XR_ITS ---
[place] [id number] Patient Name: JOSE ELIAS ONEAL MRN: [id number] date: 1960 Sex: M Assigned Patient Location: ED.MAIN Current Patient Location: ED.MAIN Accession/Order Number: [id number] Exam Date: 05/03/2025 14:04 Report Date: 05/03/2025 14:05 At the request of: KAREN JAMIL NP Procedure: XR chest 1V Plain film chest Single view HISTORY: Shortness of breath for 3 days COMPARISON: None FINDINGS: SUPPORT DEVICES: None POSTSURGICAL CHANGES: None HEART: Within normal limits PULMONARY TAMRA: Hilar vascular congestion MEDIASTINUM: Unremarkable LUNGS AND PLEURA: Diffuse groundglass parenchymal densities. No pleural effusion. No pneumothorax. BONY STRUCTURES: Intact ADDITIONAL FINDINGS None XR/XR chest 1V IMPRESSION: CHF findings. Impression dictated by: Jose Elias Fishman M.D. 05/03/2025 2:05 PM Dictation Location: [place] [address] Electronically authenticated by: [id number] Y Date: 05/03/2025 14:05
--- OUTSIDE RECORDS SUMMARY | 2025-05-03 13:28 | XMS_ITS | Encounter Summary ---
Author Organization [facility] Address [id number] [address] [place] [address] Care Team Providers Care Examination Supervisor Name Role Phone GuyolindainésPitoToshasarah ALEGRE Primary Care P yvette Encounter Details Date Type Department Care Team (Late st Contact Info) Description 10/03/2021 Orders Only [facility] [address] [place] [phone] Aleida Jade RMA Encounter for pre-operative cardiovascular clearance; Abnormal EKG Social History Tobacco Use Types Packs/Day Years Used Date Smoking Tobacco: Never Smokeless Tobacco: Never Alcohol Use Standard Drinks/Week Comments No 0 (1 standard drink = 0.6 oz pur e alcohol) Childcare Answer Date Recorded Childcare Unknown 04/25/2019 Employment Answer Date Recorded Employment Unknown 04/25/2019 Purpose - Life Answer Date Recorded Purpose and direction in life Unknown Sex and Gender Information Value Date Recorded Sex Assigned at Not on file Legal Sex Male 7:27 PM EDT Gender Identity Not on file Sexual Orientation Not on file COVID-19 Exposure Response Date Recorded In the last month, have you been in contact with someone who was confirmed or suspected to have Coronavirus / COVID-19? No / Unsure 09/26/2021 1:50 PM EST documented as of this encounter Plan of Treatment Not on file documented as of this encounter Procedures Procedure Name Priority Date/Time Associated Diagnosis Comments SARS COV 2 (COVID-19) STAT 10/03/2021 Encounter for pre-operative cardiovascular clearance Abnormal EKG documented in this encounter Results * SARS COV 2 (COVID-19)[Lab Collect] (10/03/2021) NASOPHARYNGEAL 10/03/2021 Eugenio Haines MD MICROBIOLOGY - GENERAL ORDER LUPE Final Result SUNQUEST documented in this encounter Visit Diagnoses Diagnosis Encounter for pre-operative cardiovascular clearance Abnormal EKG Nonspecific abnormal electrocardiogram (ECG) (EKG) documented in this encounter Care Teams Examination Supervisor Relationship Specialty Start Date End Date Tosha Acevedo, IGOR-WEI [address] [place] [phone] PCP - General Family Medicine 09/26/21 documented as of this encounter
--- OUTSIDE RECORDS SUMMARY | 2025-05-03 13:28 | XMS_ITS | Encounter Summary ---
Author Organization [facility] Address [facility]-[id number] [address] [place] [address] Care Team Providers Care Test Architect Name Role Phone Tosha Acevedo Primary Care P yvette Encounter Details Date Type Department Care Team (Late st Contact Info) Description 01/17/2024 Orders Only [facility] [address] [place] [phone] Samantha Martinez CMA Benign essential HTN; Mixed hyperlipidemia; Abnormal EKG; Chronic diastolic congestive heart failure (CMS-HCC); Stage 3 chronic kidney disease, unspecified whether stage 3a or 3b CKD (CMS-HCC) Social History Tobacco Use Types Packs/Day Years [...] on file Sexual Orientation Not on file documented as of this encounter Plan of Treatment Not on file documented as of this encounter Procedures Procedure Name Priority Date/Time Associated Diagnosis Comments THYROID PROFILE INCLUDES TSH FT4 Routine 01/13/2024 CBC WITH AUTO DIFFERENTIAL Routine 01/13/2024 Benign essential HTN Mixed hyperlipidemia Abnormal EKG Chronic diastolic congestive heart failure (CMS-HCC) Stage 3 chronic kidney disease, unspecified whether stage 3a or 3b CKD (CMS-HCC) LIPID PROFILE Routine 01/13/2024 Benign essential HTN Mixed hyperlipidemia Abnormal EKG Chronic diastolic congestive heart failure ([facility]-HCC) Stage 3 chronic kidney disease, unspecified whether stage 3a or 3b CKD ([facility]-HCC) COMPREHENSIVE METABOLIC PANEL Routine 01/13/2024 Benign essential HTN Mixed hyperlipidemia Abnormal EKG Chronic diastolic congestive heart failure ([facility]-HCC) Stage 3 chronic kidney disease, unspecified whether stage 3a or 3b CKD ([facility]-HCC) documented in this encounter Results * Thyroid profile includes TSH FT4 (01/13/2024) 01/13/2024 us Scanning Provider External LAB BLOOD ORDERABLES Final Result Performing Organization Address [facility] Co de Phone Number MANUALLY TRANSCRIBED RESULTS * Lipid profile (01/13/2024) External Cholesterol 147 SUNQUEST External Cholesterol:Hdl 4.1 SUNQUEST External Hdl Cholesterol 36 SUNQUEST External Ldl (Calc) 12 SUNQUEST External Triglycerides 495 SUNQUEST External Very Low Lipoprotein 99 SUNQUEST 01/13/2024 Chicho Sharp MD LAB BLOOD ORDERABLES Final Re sult Performing Organization Address [facility] de Phone Number SUNQUEST * Comprehensive metabolic panel (01/13/2024) 01/13/2024 us Chicho Sharp MD LAB BLOOD ORDERABLES Final Re sult Performing Organization Address [facility] Co de Phone Number SUNQUEST * CBC auto differential (01/13/2024) 01/13/2024 us Chicho Sharp MD LAB BLOOD ORDERABLES Final Re sult SUNQUEST documented in this encounter Visit Diagnoses Diagnosis Benign essential HTN Mixed hyperlipidemia Abnormal EKG Nonspecific abnormal electrocardiogram (ECG) (EKG) Chronic diastolic congestive heart failure (CMS-HCC) Stage 3 chronic kidney disease, unspecified whether stage 3a or 3b CKD (CMS-HCC) documented in this encounter Care Teams Test Architect Relationship Specialty Start Date End Date Tosha Acevedo APRN-CRNP [address] [place] [phone] PCP - General Family Medicine 09/26/21 documented as of this encounter
--- OUTSIDE RECORDS SUMMARY | 2025-05-03 13:28 | XMS_ITS | Encounter Summary ---
Author Organization [facility] tem Address [id number] [address] [place] [address] Care Team Providers Care Powerhouse Electrician Name Role Phone Kristina Tosha ALEGRE Primary Care P yvette Encounter Details Date Type Department Care Team (Late st Contact Info) Description 09/30/2021 Orders Only [facility] [address] [place] [phone] External, Scanning Provider Social History Tobacco Use Types Packs/Day Years [...] Procedure Name Priority Date/Time Associated Diagnosis Comments MULTIPLE LABS Routine 09/16/2021 MULTIPLE LABS Routine 08/01/2021 IR FNA ASPIRATION/BIOPSY W CT GUIDANCE 1ST LESION Routine 08/01/2021 MULTIPLE LABS Routine 07/02/2021 MULTIPLE LABS Routine 04/03/2021 LIPID PROFILE Routine 04/03/2021 ECG 12-LEAD Routine 10/02/2020 MULTIPLE LABS Routine 12/29/2019 LIPID PROFILE Routine 12/29/2019 MULTIPLE LABS Routine 04/04/2019 MULTIPLE LABS Routine 04/02/2019 CT ABDOMEN AND PELVIS W CONT Routine 04/02/2019 ECG 12-LEAD Routine 04/02/2019 documented in this encounter Results * Multiple labs (09/16/2021) us Scanning Provider External NC IMAGING Final Result Performing Organization Address [facility] de Phone Number MANUALLY TRANSCRIBED RESULTS * Multiple labs (08/01/2021) us Scanning Provider External NC IMAGING Final Result Performing Organization Address [facility] de Phone Number MANUALLY TRANSCRIBED RESULTS * IR FNA Aspiration/Biopsy w CT Guidance 1st Lesion (08/01/2021) Anatomical Region Laterality Modality IR N/A X-Ray Angiograph y us Scanning Provider External IMG IR ORDERABLES Fin al Result * Multiple labs (07/02/2021) us Scanning Provider External NC IMAGING Final Result Performing Organization Address [facility] de Phone Number MANUALLY TRANSCRIBED RESULTS * Multiple labs (04/03/2021) us Scanning Provider External NC IMAGING Final Result Performing Organization Address [facility] de Phone Number MANUALLY TRANSCRIBED RESULTS * Lipid profile (04/03/2021) External Cholesterol 118 MANUALLY TRANSCRIBED RESULTS External Cholesterol:Hdl 3.7 MANUALLY TRANSCRIBED RESULTS External Hdl Cholesterol 32 MANUALLY TRANSCRIBED RESULTS External Ldl (Calc) 21 MANUALLY TRANSCRIBED RESULTS External Triglycerides 326 MANUALLY TRANSCRIBED RESULTS External Very Low Lipoprotein 65 MANUALLY TRANSCRIBED RESULTS us Scanning Provider External LAB BLOOD ORDERABLES Edited Result - Final Performing Organization Address [facility] de Phone Number MANUALLY TRANSCRIBED RESULTS * ECG 12 lead (10/02/2020) us Scanning Provider External ECG ORDERABLES Final Result Performing Organization Address [facility] de Phone Number MANUALLY TRANSCRIBED RESULTS * Multiple labs (12/29/2019) us Scanning Provider External NC IMAGING Final Result Performing Organization Address [facility] de Phone Number MANUALLY TRANSCRIBED RESULTS * Lipid profile (12/29/2019) External Cholesterol 134 MANUALLY TRANSCRIBED RESULTS External Cholesterol:Hdl 3.5 MANUALLY TRANSCRIBED RESULTS External Hdl Cholesterol 38 MANUALLY TRANSCRIBED RESULTS External Ldl (Calc) 33 MANUALLY TRANSCRIBED RESULTS External Triglycerides 317 MANUALLY TRANSCRIBED RESULTS External Very Low Lipoprotein 63 MANUALLY TRANSCRIBED RESULTS us Scanning Provider External LAB BLOOD ORDERABLES Edited Result - Final Performing Organization Address [facility] Phone Number MANUALLY TRANSCRIBED RESULTS * Multiple labs (04/04/2019) us Scanning Provider External NC IMAGING Final Result Performing Organization Address [facility] de Phone Number MANUALLY TRANSCRIBED RESULTS * Multiple labs (04/02/2019) us Scanning Provider External NC IMAGING Final Result Performing Organization Address [facility] de Phone Number MANUALLY TRANSCRIBED RESULTS * CT abdomen and pelvis with contrast (04/02/2019) Anatomical Region Laterality Modality Body, Abdomen, Body Covera N/A Compu daniella Tomography us Scanning Provider External IMG CT ORDERABLES Fin al Result * ECG 12 lead (04/02/2019) us Scanning Provider External ECG ORDERABLES Final Result Performing Organization Address [facility] de Phone Number MANUALLY TRANSCRIBED RESULTS documented in this encounter Visit Diagnoses Not on filedocumented in this encounter Care Teams Powerhouse Electrician Relationship Specialty Start Date End Date Tosha Acevedo APRN-CRNP [address] [place] [address] PCP - General Family Medicine 09/26/21 documented as of this encounter
--- OUTSIDE RECORDS SUMMARY | 2025-05-03 13:28 | XMS_ITS | Clinical Summary ---
Author Organization [employer] [facility] Address [facility]-[id number] [address] [place] [address] Care Team Providers Care Rehabilitation Assistant Name Role Phone Tosha Acevedo Primary Care P rorobertder Allergies No known active allergies Medications allopurinol (ZYLOPRIM) 300 mg tablet Take 1 tablet (300 mg total) by mouth in the morning. Active amitriptyline (ELAVIL) 25 mg tablet Take 1 tablet (25 mg total) by mouth nightly. Active amLODIPine (NORVASC) 10 mg tablet Take 1 tablet (10 mg total) by mouth in the morning. Active atorvastatin (LIPITOR) 40 mg tablet Take 1 tablet (40 mg total) by mouth in the morning. Active carvedilol (COREG) 25 mg tablet Take 1 tablet (25 mg total) by mouth in the morning and 1 tablet (25 mg total) in the evening. Take with meals. Active dylwqjvg-zmu-DS -lycopen-lutein (CENTRUM SILVER) 0.4-300-250 mg-mcg-mcg tablet Take by mouth. Activ e furosemide (LASIX) 40 mg tablet Take 1 tablet (40 mg total) by mouth daily. Active metFORMIN (GLUCOPHAGE) 500 mg tablet Take 1 tablet (500 mg total) by mouth in the morning and 1 tablet (500 mg total) in the evening. Take with meals. Active insulin regular human U-500 concentrated (HumuLIN R U-500 concentrated ) 500 unit/mL injection Inject under the skin. Active gabapentin (NEURONTIN) 100 mg capsule Take 3 capsules (300 mg total) by mouth in the evening. Active empagliflozin (JARDIANCE) 25 mg tablet tablet Take 1 tablet (25 mg total) by mouth in the morning. Active potassium chloride (KLOR-CON M) 20 MEQ CR tablet Take 1 tablet (20 mEq total) by mouth in the morning. Active levothyroxine (TIROSINT) 50 mcg capsule Take 75 mcg by mouth in the morning. Active psyllium husk (FIBER, PSYLLIUM HUSK,) 0.4 gram capsule Take 1 capsule (0.4 g total) by mouth in the morning. Active aspirin 325 mg EC tablet Take 160 mg by mouth in the morning. Active albuterol (PROVENTIL HFA;VENTOLIN HFA) 90 mcg/actuation inhaler Inhale 2 puffs every 6 (six) hours as needed for wheezing. Active albuterol (PROVENTIL,VENT CANDICE) 2.5 mg /3 mL (0.083 %) nebulizer solution Inhale 3 mL (2.5 mg total) by nebulization every 6 (six) hours as needed for wheezing. Active losartan (COZAAR) 25 mg tablet Take 1 tablet (25 mg total) by mouth in the morning. 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 02/25/2017 02/25/2017 Family History Medical History Relation Name Comments Asthma Brother Back Problems Brother Diabetes Brother Back Problems Father Diabetes Father Back Problems Mother Diabetes Mother Stroke Mother Cancer Other 1 grandfather Alzheimer's disease Other 2 grandmother Relation Name Status Comments Brother Father Mother Other 1 grandfather Other 2 grandmother Social History Tobacco Use Types Packs/Day Years Used Date Smoking Tobacco: Never Smokeless Tobacco: Never Tobacco Cessation:Counseling Given: Not Answered Alcohol Use Standard Drinks/Week Comments No 0 [...] on file Sexual Orientation Not on file Last Filed Vital Signs Vital Sign Reading Time Taken Comments Blood Pressure 140/70 12/23/2023 12:50 PM EST Pulse 86 12/23/2023 12:50 PM EST Temperature 36.3 C (97.3 F) 12/19/2021 11:59 AM EST Respiratory Rate - - Oxygen Saturation 98% 12/19/2021 11:59 AM EST Inhaled Oxygen Concentration - - Weight 127.5 kg (281 lb) 12/23/2023 12:50 PM EST Height 177.8 cm (5' 10 ) 12/23/2023 12:50 PM EST Body Mass Index 40.32 12/23/2023 12:50 PM EST Plan of Treatment Health Maintenance Due Date Last Done Comments Depression Screening 1972 DTaP,Tdap and Td Vaccines (1 - Tdap) 1979 Zoster (Shingles) Vaccine (1 of 2) 2010 COVID-19 Vaccine (2 - season) 07/16/202405/2021 Adult BMI Screening 12/23/2024 12/23/2023 Tobacco Screening 12/23/2024 12/23/2023 Influenza Vaccine 07/16/2025 Medical Devices Not on file Insurance [place]ICAID [place] Member Subscriber Plan / Payer (Ef fective 2018-Present) Name:[place] Chilel Relation to Subscriber:Self Name:Chap[place]ito Chilel Payer ID:Not on file Group ID:Not on file Type:Not on file Address: [place] [phone] [employer] MED[employer]ARE Care Teams Rehabilitation Assistant Relationship Specialty Start Date End Date Tosha Acevedo APRN-CRNP [address] [place] [address] PCP - General Family Medicine 09/26/21
--- OUTSIDE RECORDS SUMMARY | 2025-05-03 13:28 | XMS_ITS | Encounter Summary ---
Author Organization [facility] tem Address [id number] [address] [place] [address] Care Team Providers Care Manager Personal Name Role Phone GuyPito larasarah ALEGRE Primary Care P yvette Encounter Details Date Type Department Care Team (Late st Contact Info) Description 12/24/2021 Orders Only [facility] [address] [place] [phone] External, Scanning Provider Social History Tobacco Use [...] have Coronavirus / COVID-19? No / Unsure 12/19/2021 11:47 AM EST documented as of this encounter Plan of Treatment Not on file documented as of this encounter Procedures Procedure Name Priority Date/Time Associated Diagnosis Comments MULTIPLE LABS Routine 12/10/2021 ECG 12-LEAD Routine 12/10/2021 documented in this encounter Results * Multiple labs (12/10/2021) us Scanning Provider External [place] IMAGING Final Result MANUALLY TRANSCRIBED RESULTS * ECG 12 lead (12/10/2021) us Scanning Provider External ECG ORDERABLES Final Result Performing Organization Address City/State/[facility] Co de Phone Number MANUALLY TRANSCRIBED RESULTS documented in this encounter Visit Diagnoses Not on filedocumented in this encounter Care Teams Manager Personal Relationship Specialty Start Date End Date Tosha Acevedo, IGOR-WEI [address] [place] [address] PCP - General Family Medicine 09/26/21 documented as of this encounter
--- OUTSIDE RECORDS SUMMARY | 2025-05-03 13:28 | XMS_ITS | Encounter Summary ---
Author Organization [facility] Sys tem Address [facility] [id number] [address] [place] [address] Care Team Providers Care District Court Judge Name Role Phone GuyolindainésPitoToshasarah ALEGRE Primary Care P yvette Encounter Details Date Type Department Care Team (Late st Contact Info) Description 12/22/2021 Orders Only [facility] [address] [place] [phone] External, Scanning Provider Social History Tobacco Use [...] Procedure Name Priority Date/Time Associated Diagnosis Comments NUC STRESS LEXISCAN/EXERCISE Routine 10/22/2021 XR CHEST 1 VW Routine 10/09/2021 documented in this encounter Results * Nuc stress Lexiscan/Exercise (10/22/2021) Anatomical Region Laterality Modality Chest N/A Nuclear Medicine us Scanning Provider External CV STRESS ORDERABLES Final Result * X-ray chest 1 view (10/09/2021) Anatomical Region Laterality Modality Body, Chest N/A Computed Radiogr aphy us Scanning Provider External IMG DIAGNOSTIC IMAGIN G ORDERABLES Final Result documented in this encounter Visit Diagnoses Not on filedocumented in this encounter Care Teams District Court Judge Relationship Specialty Start Date End Date Tosha Acevedo, IGOR-WEI [address] [place] [address] PCP - General Family Medicine 09/26/21 documented as of this encounter
--- OUTSIDE RECORDS SUMMARY | 2025-05-03 13:28 | XMS_ITS | Patient Health Record ---
Author Organization [facility] [place] Address [address] [place] [address] Care Team Providers Care Market Research Specialist Name Role Phone Kristina MOJICA, Tosha Primary Care Provid er Unavailable Allergies No Known Allergies Reason For Referral No Information Medications Medication SIG (Take, Route, Frequency, Duration) Notes Start Date End Date Status HumuLIN R U-500 (CONCENTRATED) 500 UNIT/ML as directed Subcutaneous BID Active Ondansetron 4 MG 1 tablet on the tong ue and allow to dissolve Orally TID- As Needed Unknown Ibuprofen 800 MG 1 tablet with food o r milk as needed Orally TID Active Pioglitazone HCl Unk nown Keflex Unknown Gabapentin 100 MG 1 tablet Orally Once a day Active metOLazone Unknown Diclofenac Sodium 1 % as directed Data Modeling Architect ally Once a day Active Urea 40 % 1 application as nee ded Externally BID Active Furosemide 40 MG 1 tablet Orally Once a day Active Atorvastatin Calcium 40 MG 1 tablet Oral ly Once a day Active Potassium Chloride ER 20 MEQ 1 tablet with food Orally Once a day Active Carvedilol 25 MG 1 tablet with food O rally BID Active Synthroid 25 MCG 1 tablet in the morn ing on an empty stomach Orally Once a day Active amLODIPine Besylate 10 MG 1 tablet Orall y Once a day Active metFORMIN HCl 500 MG 1-2 tablet with a m eal Orally Once a day Active Aspirin Buf(NhMhwb-WxCtku-YqL) 325 MG 1/2 tablet Orally Once a day Active Multivitamin - as directed Orally O nce a day Active Allopurinol 300 MG 1 tablet Orally Once a day Active Jardiance 25 MG 1 tablet Orally Once a day Active Promethazine HCl 25 MG 1/2 tablet as nee ded Orally TID Unknown Amitriptyline HCl 25 MG 1 tablet at bedt aguila Orally Once a day Active Lisinopril 40 MG 1 tablet Orally Once a day Active Silvadene Unknown Social History Tobacco Use: Social History Observation Description Date Details (start date - stop date) Never Smoker NA - NA Tobacco Use/Smoking Question Answer Notes Patient is a nonsmoker Problems Problem Type SNOMED Code ICD Code Onset Dates Problem Status W/U Status Risk Notes Problem 03126791 Essential (primary) hypertension (I10) Active confirmed Problem 42646364 Type 2 diabetes mellitus with diabetic chronic kidney disease (E11.22) Active confirmed Problem 369443400 Chronic kidney disease, stage 2 (mild) (N18.2) Active confirmed Problem 964817250 jail (current) use of insulin (Z79.4) Active confirmed Problem 35068015 Nephrotic syndrome (N04.9) Active confirmed Problem 215955409 Albuminuria (R80.9) Active confirmed Problem 767334734 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) Active confirmed Problem Chronic kidney disease stage 3A (disorder) (328165890) Chronic kidney disease, stage 3a (N18.31) Active confirmed Problem Hypertension, secondary (I15.9) Active confirmed Plan Of Treatment No Information Insurance Providers Payer Name Payer Address Payer Phone Subscriber Number Group Number Insured Name Patient Relationship to Insured Coverage Start Date Coverage End Date [employer] ADV PLAN [address] [place] [phone] [id number] [place] Self - patient is the insured 3 Medical (General) History Medical History History ICD Code Arthritis diabetes mellitus hypertension No Defibrilator No Pacemaker Hypothyroidism Obesity Surgical History Surgery Date(Month/Year) cataract removal tonsillectomy
--- OUTSIDE RECORDS SUMMARY | 2025-05-03 13:28 | XMS_ITS | Encounter Summary ---
Author Organization [facility] Address [facility] [place][id number] [address] [place] [address] Care Team Providers Care Drier Feeder Name Role Phone GuyolindainésShirleyToshamarli ALEGRE Primary Care P yvette Encounter Details Date Type Department Care Team (Late st Contact Info) Description 10/24/2021 Orders Only [facility] [address] [place] [phone] Aleida Jade RMA Encounter for pre-operative cardiovascular clearance; Abnormal EKG; Benign essential HTN Social History Tobacco Use Types Packs/Day Years [...] Priority Date/Time Associated Diagnosis Comments NUC STRESS LEXISCAN Routine 10/22/2021 Encounter for pre-operative cardiovascular clearance Abnormal EKG Benign essential HTN documented in this encounter Results * Nuc stress Lexiscan (10/22/2021) Anatomical Region Laterality Modality Chest N/A Nuclear Medicine Eugenio Haines MD CV STRESS ORDERABLES Final R esult documented in this encounter Visit Diagnoses Diagnosis Encounter for pre-operative cardiovascular clearance Abnormal EKG Nonspecific abnormal electrocardiogram (ECG) (EKG) Benign essential HTN documented in this encounter Care Teams Drier Feeder Relationship Specialty Start Date End Date Tosha Acevedo APRN-WEI [address] [place] [address] PCP - General Family Medicine 09/26/21 documented as of this encounter
--- OUTSIDE RECORDS SUMMARY | 2025-05-03 13:28 | XMS_ITS | Encounter Summary ---
Author Organization [facility] Address [id number] [address] [place] [address] Care Team Providers Care Lead Burner Helper Name Role Phone Guyolindainés Tosha ALEGRE Primary Care P yvette Encounter Details Date Type Department Care Team (Late st Contact Info) Description 12/24/2023 Orders Only [facility] [address] [place] [id number] External, Scanning Provider Social History Tobacco Use [...] Procedure Name Priority Date/Time Associated Diagnosis Comments ECHO DOPPLER Routine 11/17/2023 4:35 PM EST MULTIPLE LABS Routine 11/17/2023 4:33 PM EST XR CHEST 1 VW Routine 11/16/2023 4:40 PM EST VASC ARTERIAL DOPPLER LOWER BILATERAL MULTI LEVEL/PVR Routine 11/16/2023 4:36 PM EST VASC VENOUS DUPLEX LOWER RIGHT Routine 11/13/2023 4:37 PM EST XR CHEST 1 VW Routine 11/12/2023 4:[address] ABDOMEN AND PELVIS WO CONT Routine 11/12/2023 4:[address] BRAIN WO CONT Routine 11/12/2023 4:38 PM EST MULTIPLE LABS Routine 11/12/2023 4:34 PM EST ECG 12-LEAD Routine 11/12/2023 4:32 PM EST documented in this encounter Results * Echo Doppler (11/17/2023 4:35 PM EST) Anatomical Region Laterality Modality Chest N/A Ultrasound us Scanning Provider External CV ECHO ORDERABLES Fi nal Result * Multiple labs (11/17/2023 4:33 PM EST) us Scanning Provider External MN IMAGING Final Result MANUALLY TRANSCRIBED RESULTS * X-ray chest 1 view (11/16/2023 4:40 PM EST) Anatomical Region Laterality Modality Body, Chest N/A Computed Radiogr aphy us Scanning Provider External IMG DIAGNOSTIC IMAGIN G ORDERABLES Final Result * Vas art doppler lwr bilat mult lev/PVR (11/16/2023 4:36 PM EST) Anatomical Region Laterality Modality Vascular Bilateral Ultrasound us Scanning Provider External CV VASCULAR ORDERABLE S Final Result * Vas venous duplex lwr single right (11/13/2023 4:37 PM EST) Anatomical Region Laterality Modality Vascular Right Ultrasound us Scanning Provider External CV VASCULAR ORDERABLE S Final Result * X-ray chest 1 view (11/12/2023 4:39 PM EST) Anatomical Region Laterality Modality Body, Chest N/A Computed Radiogr aphy us Scanning Provider External IMG DIAGNOSTIC IMAGIN G ORDERABLES Final Result * CT abdomen and pelvis without contrast (11/12/2023 4:39 PM EST) Anatomical Region Laterality Modality Body, Abdomen, Body Covera N/A Compu daniella Tomography us Scanning Provider External IMG CT ORDERABLES Fin al Result * CT brain without contrast (11/12/2023 4:38 PM EST) Anatomical Region Laterality Modality Neuro, Head, Head and Neck, Neuro Covera N/A Computed Tomography us Scanning Provider External IMG CT ORDERABLES Fin al Result * Multiple labs (11/12/2023 4:34 PM EST) us Scanning Provider External [place] IMAGING Final Result Performing Organization Address [facility] Co de Phone Number MANUALLY TRANSCRIBED RESULTS * ECG 12 lead (11/12/2023 4:32 PM EST) us Scanning Provider External ECG ORDERABLES Final Result Performing Organization Address [facility] de Phone Number MANUALLY TRANSCRIBED RESULTS documented in this encounter Visit Diagnoses Not on filedocumented in this encounter Care Teams Lead Burner Helper Relationship Specialty Start Date End Date Tosha Acevedo APRN-WEI [address] [place] [address] PCP - General Family Medicine 09/26/21 documented as of this encounter
--- NOTE | 2025-05-03 13:30 | ED.GENADUL1 ---
HPI HPI - General Adult General Chief complaint: Shortness of Breath/Dyspnea Stated complaint: SOB Time Seen by Provider: 05/03/25 13:23 Source: patient Mode of arrival: ambulance Limitations: no limitations History of Present Illness HPI narrative: The patient is a 64-year-old male who presents to the emergency department today for evaluation concerns for shortness of breath. He endorses over the past 5 days he has been feeling short of breath. He states the symptoms came on suddenly 5 days ago. He denies any fever/chills or cough/cold symptoms. No chest pain. No abdominal pain or nausea/vomiting. Denies any history of asthma or COPD. No history of CHF. He denies any history of VTE. He states he is a non-smoker. Patient was brought in by ambulance and was found to have oxygen saturations of 81% on room air on their arrival. He was noted to be wheezing per EMS did receive a single albuterol neb and Solu-Medrol. On arrival to the ER patient is reporting feeling better and oxygen was weaned down to 4 L nasal cannula to maintain his saturations Related Data Home Medications ?Medication ?Instructions ?Recorded ?Confirmed albuterol sulfate 90 mcg/actuation 2 puff inhalation .once daily 05/03/25 05/03/25 aerosol inhaler allopurinol 300 mg tablet 300 mg PO .once daily 05/03/25 05/03/25 amitriptyline 25 mg tablet 25 mg PO .once daily 05/03/25 05/03/25 amlodipine 10 mg tablet 10 mg PO .once daily 05/03/25 05/03/25 aspirin 325 mg capsule 162 mg PO DAILY 05/03/25 05/03/25 atorvastatin 40 mg tablet 40 mg PO .once daily 05/03/25 05/03/25 carvedilol 25 mg tablet 25 mg PO BID 05/03/25 05/03/25 empagliflozin 25 mg tablet 25 mg PO .once daily 05/03/25 05/03/25 (Jardiance) furosemide 40 mg tablet 40 mg PO .once daily 05/03/25 05/03/25 gabapentin 300 mg capsule 300 mg PO .once daily 05/03/25 05/03/25 insulin regular hum U-500 conc 500 unit 05/03/25 unit/mL subcutaneous soln (Humulin R U-500 (Concentrated) Insulin) insulin regular human 100 unit/mL 05/03/25 injection solution (Humulin R Regular U-100 Insulin) losartan 25 mg tablet 25 mg PO .once daily 05/03/25 05/03/25 metformin 500 mg tablet 1,000 mg PO .once daily 05/03/25 05/03/25 metformin 500 mg tablet,extended 500 mg PO BID 05/03/25 05/03/25 release 24 hr potassium chloride 20 mEq 20 meq PO .once daily 05/03/25 05/03/25 tablet,extended release Allergies Allergy/AdvReac Type Severity Reaction Status Date / Time No Known Drug Allergies Allergy Verified 05/03/25 13:30 Review of Systems ROS Status of ROS 10 or more systems reviewed and unremarkable except as noted in history and below PFSH PFSH Social History Little interest or pleasure in doing things: not at all Feeling down, depressed, or hopeless: not at all Exam Narrative Exam Narrative: Constituational: Awake/ alert, no apparent distress, obese HENMT: normocephalic, external ears normal, moist oral mucous membranes and oropharynx normal Eyes: EOMI and conjunctivae normal Neck: ROM intact, no jvd Chest: inspection of chest normal Respiratory: Normal respiratory effort, clear to auscultation bilaterally with fair aeration throughout Cardio: regular rate and regular rhythm GI: soft to palpation and non-tender Back: nontender MSK: no edema, ROM intact, +NVI Skin: no rashes or petechiae Neuro: no focal deficits Psych: mental status grossly normal Constitutional Vital Signs, click to edit/add: Last Vital Signs Temp 98 F 05/03/25 13:26 Pulse 95 H 05/03/25 19:03 Resp 18 05/03/25 19:00 BP 149/81 H 05/03/25 18:51 Pulse Ox 98 05/03/25 19:03 O2 Del Method Nasal Cannula 05/03/25 13:26 O2 Flow Rate 4 05/03/25 13:26 FiO2 40 05/03/25 19:03 Course Vital Signs Vital signs: Vital Signs Pulse Rate 75 05/03/25 13:25 Respiratory Rate 12 05/03/25 13:25 Pulse Oximetry 92 L 05/03/25 13:25 Temperature 98 F 05/03/25 13:26 Pulse Rate 95 H 05/03/25 19:03 Respiratory Rate 18 06/19/25 19:00 Blood Pressure 149/81 H 05/03/25 18:51 Pulse Oximetry 98 05/03/25 19:03 Oxygen Delivery Method Nasal Cannula 05/03/25 13:26 Oxygen Delivery Flow Rate 4 05/03/25 13:26 Fraction of Inspired Oxygen 40 05/03/25 19:03 Medical Decision Making MDM Narrative Medical decision making narrative: Is a moderately ill-appearing 64-year-old male who department today for evaluation of concerns for shortness of breath and was noted to be acutely hypoxic with saturations of 81% by EMS. Initial examination patient was maintaining appropriate oxygen saturations on 4 L nasal cannula and is alert and oriented clinical improvement with placement on supplemental oxygen. Received Solu-Medrol and albuterol neb by EMS which patient stated did not help much. Initially was noted be hypertensive on arrival with SBP 180s to 190s. Otherwise his respiratory status appears stable. He does appear somewhat volume expanded as evidenced by some orthopnea. There was some confusion if patient is taking Lasix historically. X-ray does show pulmonary vascular congestion and BNP is 1700. She without acute changes and troponin negative x 1. Patient did receive additional supportive measures of IVPB Lasix 40 mg x 1 dose and 1 inch Nitro-Bid paste. BP did stabilize and SBP 150s to 160s following this. Patient did have 800 mL urine output. Labs otherwise showed mild leukocytosis with WBCs 13 otherwise no significant anemia or thrombocytopenia. Including hepatic function stable. Renal function noted to be elevated with creatinine of 4.0. There are no prior trends for comparison. Due to suspicion for possible PE as patient had initially reported sudden onset of symptoms. D-dimer is noted elevated at 1.2. Unable to do CT angiogram due to renal function and VQ scan is unavailable at this facility. Patient was placed on heparin drip for PE protocol. Patient was reevaluated multiple times while in the ER and did appear to be somewhat disoriented on follow-up reevaluation and did seem more sleepy. ABG obtained that does show clinical picture of respiratory acidosis with pH 7.2 and CO2 55. He was placed on BiPAP and on reevaluation ABG showed downtrend and pH 7.1 and PCO2 of 63. BiPAP settings adjusted to 18/6. mental status is improved some however he remains slightly altered, otherwise no concerning neurologic or strokelike findings on exam-> to be related to CO2 retention. ABG has improved some with pH now 7.2 and CO2 normalized at 47. Patient was noted to have converted to A-fib and again is anticoagulated with A-fib. Rates are controlled. Clinical impression CHF exacerbation, hypertensive urgency, BRENDON, likely cardiorenal. initially discussed patient's condition with Dr. Pablo (hospitalist) 7120p and received recommendations to transfer to facility with nephrology services due to BRENDON. Subsequently spoke with [facility]'s hospitalist Dr. Mendoza 2118p -> accepts patient for transfer ambulance to progressive care unit. These findings and recommendations with the patient. He additionally is agreeable to plan to transfer for further care of the above. Medical Records Medical records reviewed: Yes I reviewed the patient's medical records Lab Data Lab results reviewed: Yes I reviewed the patient's lab results Labs: Lab Results 05/03/25 05/03/25 05/03/25 Range/Units 13:37 14:00 16:05 WBC 13.0 H (4.0-11.0) 10^3/uL RBC 3.19 L (4.70-6.10) 10^6/uL Hgb 9.7 L (14.0-18.0) g/dL Hct 31.0 L (42.0-54.0) % MCV 97.2 H (80.0-94.0) fL MCH 30.4 (25.9-34.0) pg MCHC 31.3 (29.9-35.2) g/dL RDW 15.8 H (11.0-15.0) % Plt Count 284 (150-450) 10^3/uL MPV 10.8 (9.5-13.5) fL Neut % (Auto) 77.5 H (43.0-75.0) % Lymph % (Auto) 12.0 L (20.5-60.0) % Jones % (Auto) 7.1 (1.7-12.0) % Eos % (Auto) 2.4 (0.9-7.0) % Baso % (Auto) 0.3 (0.2-2.0) % Neut # (Auto) 10.1 H (1.4-6.5) 10^3/uL Lymph # (Auto) 1.6 (1.2-3.8) 10^3/uL Jones # (Auto) 0.9 H (0.3-0.8) 10^3/uL Eos # (Auto) 0.3 (0.0-0.7) 10^3/uL Baso # (Auto) 0.0 (0.0-0.1) 10^3/uL Abs Immat Gran (auto) 0.09 H (0.00-0.03) 10^3/uL Imm/Tot Granulo (auto) 0.7 H (0.0-0.5) % D-Dimer 1.26 H* (<=0.59) mg/L FEU Puncture Site Right radial ABG pH 7.226 L* (7.350-7.450) ABG pCO2 55.8 H* (35.0-45.0) mmHg ABG pO2 74.2 L (80.0-100.0) mmHg ABG HCO3 23.2 (22.0-26.0) mmol/L ABG O2 Saturation 93.8 % ABG Base Excess -4.5 L (-2.0-2.0) mmol/L Wilner Test Positive (POSITIVE) O2 Liters/Min 3.5 FiO2 % BiPAP Sodium 141 (136-145) mmol/L Potassium 5.0 (3.5-5.1) mmol/L Chloride 106 (98-107) mmol/L Carbon Dioxide 25.9 (21.0-32.0) mmol/L Anion Gap 14.1 BUN 66.0 H (7.0-18.0) mg/dL Creatinine 4.03 H (0.70-1.30) mg/dL Est GFR ( Amer) 18 L (>=60 mL/min/1.73m^2) Est GFR (Non-Af Amer) 15 L (>=60 mL/min/1.73m^2) BUN/Creatinine Ratio 16.4 Glucose 309 H (74-106) mg/dL Calcium 8.3 L (8.5-10.1) mg/dL Total Bilirubin 0.4 (0.2-1.0) mg/dL AST 21 (15-37) U/L ALT 22 (16-63) U/L Alkaline Phosphatase 120 H (46-116) U/L Troponin I High Sens 10.6 (4.0-76.1) pg/mL NT-Pro-B Natriuret Pep 1711.0 H* (<=900.0) pg/mL Total Protein 6.5 (6.4-8.2) g/dL Albumin 2.0 L (3.4-5.0) g/dL Globulin 4.5 g/dL Albumin/Globulin Ratio 0.4 05/03/25 05/03/25 Range/Units 18:05 18:59 WBC (4.0-11.0) 10^3/uL RBC (4.70-6.10) 10^6/uL Hgb (14.0-18.0) g/dL Hct (42.0-54.0) % MCV (80.0-94.0) fL MCH (25.9-34.0) pg MCHC (29.9-35.2) g/dL RDW (11.0-15.0) % Plt Count (150-450) 10^3/uL MPV (9.5-13.5) fL Neut % (Auto) (43.0-75.0) % Lymph % (Auto) (20.5-60.0) % Jones % (Auto) (1.7-12.0) % Eos % (Auto) (0.9-7.0) % Baso % (Auto) (0.2-2.0) % Neut # (Auto) (1.4-6.5) 10^3/uL Lymph # (Auto) (1.2-3.8) 10^3/uL Jones # (Auto) (0.3-0.8) 10^3/uL Eos # (Auto) (0.0-0.7) 10^3/uL Baso # (Auto) (0.0-0.1) 10^3/uL Abs Immat Gran (auto) (0.00-0.03) 10^3/uL Imm/Tot Granulo (auto) (0.0-0.5) % D-Dimer (<=0.59) mg/L FEU Puncture Site Rr R.radial ABG pH 7.176 L* 7.260 L* (7.350-7.450) ABG pCO2 63.1 H* 47.8 H (35.0-45.0) mmHg ABG pO2 66.8 L 124.0 H (80.0-100.0) mmHg ABG HCO3 23.3 21.4 L (22.0-26.0) mmol/L ABG O2 Saturation 90.1 97.9 % ABG Base Excess -5.1 L -5.6 L (-2.0-2.0) mmol/L Wilner Test Positive Positive (POSITIVE) O2 Liters/Min FiO2 40 40 % BiPAP 1618 18/6 Sodium (136-145) mmol/L Potassium (3.5-5.1) mmol/L Chloride (98-107) mmol/L Carbon Dioxide (21.0-32.0) mmol/L Anion Gap BUN (7.0-18.0) mg/dL Creatinine (0.70-1.30) mg/dL Est GFR ( Amer) (>=60 mL/min/1.73m^2) Est GFR (Non-Af Amer) (>=60 mL/min/1.73m^2) BUN/Creatinine Ratio Glucose (74-106) mg/dL Calcium (8.5-10.1) mg/dL Total Bilirubin (0.2-1.0) mg/dL AST (15-37) U/L ALT (16-63) U/L Alkaline Phosphatase (46-116) U/L Troponin I High Sens (4.0-76.1) pg/mL NT-Pro-B Natriuret Pep (<=900.0) pg/mL Total Protein (6.4-8.2) g/dL Albumin (3.4-5.0) g/dL Globulin g/dL Albumin/Globulin Ratio Imaging Data Chest x-ray: Attestation: I have reviewed the pertinent imaging results. Radiologist's impression: ITS Impressions Chest X-Ray 05/03/25 13:28 IMPRESSION: CHF findings. Impression dictated by: Chapincito Fishman M.D. 05/03/2025 2:05 PM Dictation Location: [place] [id number] Electronically authenticated by: [id number] Y Date: 05/03/2025 14:05 ECG Data Attestation: I personally reviewed and interpreted this ECG as follows: (SR with HR 68, no acute/ischemic changes) Critical Care Time Critical Care Time Critical Care Time: Yes Total Critical Care Time: 60 Attestation: Given that the patient was critically ill and my immediate attention was required upon arrival. Also a significant time was spent directly at the bedside reevaluating the patient, discussing with consults/family, and with documentation. Discharge Plan Discharge Chief Complaint: Shortness of Breath/Dyspnea Clinical Impression: Acute and chronic respiratory failure with hypoxia, Hypercarbia, Acute exacerbation of CHF (congestive heart failure), Hypertensive urgency, BRENDON (acute kidney injury), A-fib Patient Disposition: [facility] Discharge Location: [facility] Mode of Transportation: EMS Discharge Date/Time: 05/03/25 19:20
[2025-05-03 13:49] LABS: Basophils Percent Auto 0.3 % (0.2-2.0); Eosinophils Absolute Auto 0.3 10^3/uL (0.0-0.7); Eosinophils Percent Auto 2.4 % (0.9-7.0); Hemoglobin 9.7 g/dL (14.0-18.0); Immature Granulocytes Abs Auto 0.09 10^3/uL (0.00-0.03); Immature Granulocytes Pct Auto 0.7 % (0.0-0.5); Lymphocytes Absolute Auto 1.6 10^3/uL (1.2-3.8); Mean Corpuscular HGB Conc 31.3 g/dL (29.9-35.2); Mean Corpuscular Hemoglobin 30.4 pg (25.9-34.0); Mean Corpuscular Volume 97.2 fL (80.0-94.0); Mean Platelet Volume 10.8 fL (9.5-13.5); Monocytes Absolute Auto 0.9 10^3/uL (0.3-0.8); Monocytes Percent Auto 7.1 % (1.7-12.0); Neutrophils Absolute Auto 10.1 10^3/uL (1.4-6.5); Neutrophils Percent Auto 77.5 % (43.0-75.0); Platelet Count 284 10^3/uL (150-450); Red Blood Count 3.19 10^6/uL (4.70-6.10); Red Cell Distribution Width 15.8 % (11.0-15.0)
[2025-05-03 14:12] LABS: Alanine Aminotransferase 22 U/L (16-63); Albumin Globulin Ratio 0.4; Alkaline Phosphatase 120 U/L (46-116); Aspartate Amino Transferase 21 U/L (15-37); BUN Creatinine Ratio 16.4; Bilirubin Total 0.4 mg/dL (0.2-1.0); Calcium 8.3 mg/dL (8.5-10.1); Carbon Dioxide 25.9 mmol/L (21.0-32.0); Chloride 106 mmol/L (98-107); Estimated GFR (African America 18 (>=60 mL/min/1.73m^2); Estimated GFR (Non-African Ame 15 (>=60 mL/min/1.73m^2); Globulin 4.5 g/dL; Glucose 309 mg/dL (74-106); Sodium 141 mmol/L (136-145); Total Protein 6.5 g/dL (6.4-8.2); Troponin I High Sensitivity 10.6 pg/mL (4.0-76.1)
[2025-05-03 14:18] LABS: Anion Gap 14.1
[2025-05-03 14:32] LABS: D Dimer 1.26 mg/L FEU (<=0.59)
[2025-05-03] MEDS: NITROGLYCERIN 2% 1 GRAM PACKET 1 GM TD (15:00)
[2025-05-03] MEDS: FUROSEMIDE 40 MG/4 ML VIAL IVP ×2 (15:00→18:33)
[2025-05-03] MEDS: HEPARIN SODIUM (PORCINE) 5,000 UNIT/ML VIAL 7200 UNIT IV (15:39)
[2025-05-03] MEDS: HEPARIN SODIUM,PORCINE/D5W 25,000 UNIT/500 ML IV.SOLN 30 UNIT IV (15:40)
[2025-05-03 16:13] LABS: PO2 ABG 74.2 mmHg (80.0-100.0)
[2025-05-03 16:14] LABS: Allen Test POSITIVE (POSITIVE); Base Excess ABG -4.5 mmol/L (-2.0-2.0); HCO3 ABG 23.2 mmol/L (22.0-26.0); Liters per Minute 3.5; O2 Mode NC; Oxygen Saturation ABG 93.8 %
[2025-05-03 16:17] LABS: ABG PCO2 55.8 mmHg (35.0-45.0); Puncture Site RIGHT RADIAL; pH ABG 7.226 (7.350-7.450)
[2025-05-03 18:08] LABS: HCO3 ABG 23.3 mmol/L (22.0-26.0); PO2 ABG 66.8 mmHg (80.0-100.0)
[2025-05-03 18:09] LABS: Allen Test POSITIVE (POSITIVE); BIPAP Pressure 1618; Base Excess ABG -5.1 mmol/L (-2.0-2.0); Fractionated Inspired Oxygen 40 %; O2 Mode BIPAP; Oxygen Saturation ABG 90.1 %; Puncture Site RR
[2025-05-03 18:11] LABS: ABG PCO2 63.1 mmHg (35.0-45.0); pH ABG 7.176 (7.350-7.450)
[2025-05-03] MEDS: NITROGLYCERIN IN 5 % DEXTROSE 50 MG/250 ML INFUS..BTL IV (18:33)
--- NOTE | 2025-05-03 18:58 | PC.NURSE ---
PT BECOMING MORE AND MORE CONFUSED/AGITATED AT THIS TIME. RECINOS PLACED 16FR, 650ML OUTPUT IMMEDIATELY
[2025-05-03 19:09] LABS: ABG PCO2 47.8 mmHg (35.0-45.0)
[2025-05-03 19:10] LABS: Allen Test POSITIVE (POSITIVE); Base Excess ABG -5.6 mmol/L (-2.0-2.0); HCO3 ABG 21.4 mmol/L (22.0-26.0); Oxygen Saturation ABG 97.9 %
[2025-05-03 19:11] LABS: BIPAP Pressure 18/6; Fractionated Inspired Oxygen 40 %; O2 Mode BIPAP; Puncture Site R.RADIAL
--- NOTE | 2025-05-03 19:16 | ECG_ITS ---
[facility] Test Date: 2025-05-03 Pat Name: JOSE ELIAS ONEAL Department: Room: - Gender: Male Certified Cytotechnologist: : 1960 Requested By: [id number] Order Number: [id number] Reading MD: RYLEY BETHEA M.D. Measurements Intervals [place] Rate: 98 P: -40071 IN: -01520 QRS: 24 QRSD: 90 T: 106 QT: 354 QTc: 409 Interpretive Statements 1210 Atrial fibrillation 7500 Abnormal QRS-T angle 8101 Low QRS voltage in limb leads 9140 abnormal rhythm ECG Compared to ECG 05/03/2025 13:24:25 Sinus rhythm no longer present Poor R-wave progression no longer present Electronically Signed On 05-04-2025 19:26:39 EDT by RYLEY BETHEA M.D.
--- NOTE | 2025-05-03 19:26 | PC.NURSE ---
[facility] UNABLE TO TAKE NITRO DRIP ON THEIR TRUCK - PRATIK HAIRSTON, TREVOR WITH D/C OF NITRO. PHONE REPORT GIVEN TO ERIC HERRERA, AT [facility]. CALLED , BONNIE, AND INFORMED HER OF [place] [facility] [place]
== END 2025-05-03 19:20 | disposition short-term general hospital (02) ==
PROVIDERS: Nurse Practitioner; Emergency Provider Emergency Medicine; PCP Clinical Nurse Specialist Family Health
DX: J96.21 Acute and chronic respiratory failure with hypoxia (principal); J96.22 Acute and chronic respiratory failure with hypercapnia; I50.9 Heart failure, unspecified; I16.0 Hypertensive urgency; I11.0 Hypertensive heart disease with heart failure; N17.9 Acute kidney failure, unspecified; I48.91 Unspecified atrial fibrillation
CPT/HCPCS: 36415; 36600; 71045; 80053; 82805; 83880; 84484; 85025; 85378; 93005; 94660; 96365; 96366; 96368; 96375; 96376; 99291; 99292; J1644; J1938; J2305

== ENCOUNTER 2025-08-30 21:38 | Inpatient (IN) | payer MEDICARE, SELFPAY ==
[2025-08-30] VITALS (21 sets, daily range): BP systolic 138–190; BP diastolic 69–92; PULSE 82–96; TEMP 36.6; O2SAT 85–100; BMI 43.0
--- NOTE | 2025-08-30 21:40 | ECG_ITS ---
[facility] Test Date: 2025-08-30 Pat Name: JOSE ELIAS ONAEL Department: Room: [facility] Gender: Male Credit Administration Specialist: CHICO: 1960 Requested By: [id number] Order Number: [id number] Reading MD: CHARU KHANNA Measurements Intervals [place] Rate: 85 P: 22 NC: 176 QRS: 65 QRSD: 92 T: 39 QT: 370 QTc: 412 Interpretive Statements Sinus rhythm with sinus arrhythmia 8102 Low QRS voltage in chest leads 9140 abnormal rhythm ECG Compared to ECG 05/03/2025 19:16:17 Atrial fibrillation no longer present Electronically Signed On 08-31-2025 9:59:03 EDT by CHARU KHANNA
--- NOTE | 2025-08-30 21:52 | XR_ITS ---
The [place] [id number] Patient Name: JOSE ELIAS ONEAL MRN: [id number] date: 1960 Sex: M Assigned Patient Location: ER Current Patient Location: ER Accession/Order Number: [id number] Exam Date: 08/30/2025 21:58 Report Date: 08/30/2025 22:10 At the request of: JESUSITA OSORIO MD Procedure: XR chest 1V XR chest 1V 08/30/2025 10:04 PM SIGNS AND SYMPTOMS: ^SOB PROTOCOL: Frontal radiograph of the chest COMPARISON: 05/03/2025 FINDINGS: The trachea is midline. The heart and mediastinal structures are within normal limits. Hazy airspace opacities are noted with perihilar vascular prominence bilaterally suggesting congestive heart failure. The bony thorax is intact. XR/XR chest 1V IMPRESSION: Hazy airspace opacities are noted with perihilar vascular prominence bilaterally suggesting congestive heart failure. Impression dictated by: Brandin Cifuentes M.D. 08/30/2025 10:10 PM Dictation Location: [place] [address] Electronically authenticated by: [id number] Y Date: 08/30/2025 22:10
--- NOTE | 2025-08-30 22:09 | ED.SOB1 ---
HPI - SOB/Dyspnea General Chief Complaint: Shortness of Breath/Dyspnea Stated Complaint: other Time Seen by Provider: 08/30/25 21:44 Source: patient Mode of arrival: ambulance History of Present Illness HPI Narrative: This 64-year-old male with a history of atrial fibrillation who is on Xarelto and amiodarone, hypertension, diabetes, CHF and respiratory failure is brought to emergency department by EMS from home for shortness of breath. The patient states his shortness of breath has been increasing for the past week. He has generalized swelling including his legs, abdomen, arms and hands. He is on Lasix. He denies any chest pain. He has not had any fever. His only complaint of pain is his left hip and he has had left hip replacement surgery in the past. He was seen here in April and transferred to [facility] for respiratory failure, kidney failure and fluid overload. He is a non-smoker. He was found to be hypoxic with pulse ox in the 80s by EMS and placed on a nasal cannula. Upon arrival he was transferred to a nonrebreather mask due to continued hypoxia with a pulse ox of 92% on nasal cannula. Related Data Home Medications ?Medication ?Instructions ?Recorded ?Confirmed amlodipine 10 mg tablet 10 mg PO .once daily 05/03/25 08/31/25 atorvastatin 40 mg tablet 40 mg PO .once daily 05/03/25 08/31/25 empagliflozin 25 mg tablet 25 mg PO .once daily 05/03/25 08/31/25 (Jardiance) furosemide 40 mg tablet 40 mg PO .once daily 05/03/25 08/31/25 insulin regular hum U-500 conc 500 unit 05/03/25 unit/mL subcutaneous soln (Humulin R U-500 (Concentrated) Insulin) amiodarone 200 mg tablet mg 08/30/25 hydralazine 25 mg tablet mg 08/30/25 levothyroxine 75 mcg tablet mcg 08/30/25 pantoprazole 40 mg tablet,delayed mg PO 08/30/25 release rivaroxaban 20 mg tablet (Xarelto) mg 08/30/25 albuterol sulfate 90 mcg/actuation inhalation 08/31/25 aerosol inhaler apixaban 5 mg tablet (Eliquis) mg 08/31/25 insulin glargine 100 unit/mL (3 unit subcut 10/17/25 mL) subcutaneous pen (Lantus Solostar U-100 Insulin) Allergies Allergy/AdvReac Type Severity Reaction Status Date / Time No Known Drug Allergies Allergy Verified 05/03/25 13:30 Review of Systems ROS Status of ROS 10 or more systems reviewed and unremarkable except as noted in history and below [facility] Medical History (Updated 08/31/25 @ 01:44 by Charlene Leal RN) GERD (gastroesophageal reflux disease) ?K21.9 - Gastro-esophageal reflux disease without esophagitis (ICD-10) CHF (congestive heart failure) ?I50.9 - Heart failure, unspecified (ICD-10) HTN (hypertension) ?I10 - Essential (primary) hypertension (ICD-10) Type 2 diabetes mellitus ?E11.9 - Type 2 diabetes mellitus without complications (ICD-10) Cervical vertebral fusion ?M43.22 - Fusion of spine, cervical region (ICD-10) Diabetes ?E11.9 - Type 2 diabetes mellitus without complications (ICD-10) Surgical History (Updated 08/31/25 @ 01:33 by Carisa Chavez RN) History of left hip replacement ?Z96.642 - Presence of left artificial hip joint (ICD-10) Family History (Updated 08/31/25 @ 01:36 by Carisa Chavez RN) Father Family history of CHF (congestive heart failure) Family history of hypertension Mother Family history of cancer Family history of hypertension Brother Family history of diabetes mellitus Social History Within the past year, how often did you have a drink containing alcohol: never Within the past year, how often did you have six or more drinks on one occasion: never Score interpretation: A score less than 4 is consistent with normal alcohol consumption. Smoking status: Never smoker Non-prescribed substance use: denies use Previous occupational history: retired Highest level of school completed/degree received: some college, no degree Are you now , , , , never or living with a partner: In a typical week, how many times do you talk on the telephone with family, friends, or neighbors: 3 or more times per week How often do you get together with friends or relatives: 3 or more times per week How often do you attend druze or pentecostal services: 4 or more times per year Do you belong to any clubs or organizations such as druze groups unions, fra[employer]joy[employer] or athletic groups, or school groups: no Total score: 3 Score interpretation: A score of greater than or equal to 2 indicates the lowest level of social isolation. Little interest or pleasure in doing things: not at all Feeling down, depressed, or hopeless: not at all Feel stressed/tense/nervous/anxious/difficulty sleeping: not at all Exam Narrative Exam Narrative: Vital signs and Nursing Notes reviewed: Patient is afebrile with a normal pulse, blood pressure is elevated at 165/76 and he is hypoxic with pulse ox of 90% on supplemental oxygen upon arrival General: Awake, alert, oriented but uncomfortable appearing obese adult male with 2-3 word conversational dyspnea and audible expiratory wheezing HEENT: Normocephalic atraumatic, mucous membranes are moist and pink, eyes are clear, normal conjunctiva, vision is grossly intact, posterior pharynx is normal in appearance Neck: Supple, mild JVD Chest: Diffuse rales and expiratory wheezing appreciated with mild accessory muscle use and pursed lip breathing upon arrival CVS: Irregular rate and rhythm S1-S2 with atrial fib on the monitor ABD: Obese, soft with pitting edema of the abdominal wall Extremities: 2-3+ pitting edema of the lower extremities from the feet to the abdominal wall also the hands and forearms are edematous with generalized edema making it difficult for the patient to make a fist Skin: Normal in appearance without rash,pallor, petechiae or purpura Neuro: No focal deficits Constitutional Vital Signs, click to edit/add: Last Vital Signs Temp 97.9 F 08/30/25 21:45 Pulse 82 08/31/25 00:40 Resp 15 08/31/25 00:40 BP 141/67 08/31/25 00:30 Pulse Ox 97 08/31/25 00:40 O2 Del Method Nasal Cannula 08/30/25 22:45 O2 Flow Rate 6 08/30/25 22:45 Course Vital Signs Vital signs: Vital Signs Pulse Oximetry 90 L 08/30/25 21:42 Temperature 97.9 F 08/30/25 21:45 Pulse Rate 82 08/31/25 00:40 Respiratory Rate 15 08/31/25 00:40 Blood Pressure 141/67 08/31/25 00:30 Pulse Oximetry 97 08/31/25 00:40 Oxygen Delivery Method Nasal Cannula 08/30/25 22:45 Oxygen Delivery Flow Rate 6 08/30/25 22:45 MDM - SOB/Dyspnea MDM Narrative Medical decision making narrative: This 64-year-old male with a history of morbid obesity, A-fib, chronic kidney disease, hypertension, diabetes, CHF presents for evaluation of a week of increasing shortness of breath. The patient does not have a flarer. Upon EMS arrival he was found to be diffusely wheezing and hypoxic and was given a DuoNeb treatment. He was brought to the emergency department on a nasal cannula. His pulse ox was still in the 80s and [facility] He has diffuse pitting edema from his feet to his upper abdomen. He has diffuse rales and expiratory wheezing with mild increased work of breathing. He does take Lasix. He is also on Xarelto. After the patient was somewhat feeling better he admitted to me that for pain in his left hip which is chronic in nature he takes 1600 mg of ibuprofen at a time. He states he has been told he can take up to 3400 mg of at a time but typically does not take that much. EKG done upon arrival is A-fib at 85 bpm with no acute findings. He was given IV Lasix and an ABG was ordered. He has a mild respiratory acidosis with a arterial pH of 7.328 and pCO2 of 46. He has a normal white count of 11.9 with a mild anemia of 8.8. Platelet count is normal at 280. He has a normal sodium of 144 and potassium of 4.1. CO2 is 24.7. Chloride is 109, BUN is elevated at 46 and creatinine is elevated at 4.27. GFR is 17. Glucose is 282. Troponin is 22.4. BNP is 1958. Chest x-ray was reviewed by radiology and shows cardiomegaly and a pattern of congestive heart failure in keeping with his physical exam. After Lasix and supplemental oxygen the patient has clinically improved. The case was discussed with the hospitalist who feels the patient would benefit from a higher level of care such as [facility]. Patient is agreeable to this but request something for his chronic hip pain and was given a dose of morphine. I did explain to him that NSAIDs such as ibuprofen are contraindicated with his chronic kidney disease. Case was discussed withe [facility] and he is accepted for transfer however a bed is not currently available and he will be boarded at this facility overnight until a bed is available. His condition did improve while in the emergency department he was given additional 40 mg of IV Lasix. The swelling in his hand somewhat decreased and his respiratory function improved. Differential Diagnosis Differential diagnosis: Likely acute exacerbation of chronic obstructive airways disease, congestive heart failure and community acquired pneumonia Medical Records Attestation: I reviewed the patient's medical records. Lab Data Attestation: I reviewed the patient's lab results. Labs: Lab Results 08/30/25 08/30/25 08/30/25 Range/Units 22:00 22:16 22:25 WBC 11.9 H (4.0-11.0) 10^3/uL RBC 2.97 L (4.70-6.10) 10^6/uL Hgb 8.8 L (14.0-18.0) g/dL Hct 28.2 L (42.0-54.0) % MCV 94.9 H (80.0-94.0) fL MCH 29.6 (25.9-34.0) pg MCHC 31.2 (29.9-35.2) g/dL RDW 16.5 H (11.0-15.0) % Plt Count 280 (150-450) 10^3/uL MPV 10.4 (9.5-13.5) fL Neut % (Auto) 71.1 (43.0-75.0) % Lymph % (Auto) 13.6 L (20.5-60.0) % [place] % (Auto) 10.6 (1.7-12.0) % Eos % (Auto) 3.8 (0.9-7.0) % Baso % (Auto) 0.3 (0.2-2.0) % Neut # (Auto) 8.5 H (1.4-6.5) 10^3/uL Lymph # (Auto) 1.6 (1.2-3.8) 10^3/uL [place] # (Auto) 1.3 H (0.3-0.8) 10^3/uL Eos # (Auto) 0.5 (0.0-0.7) 10^3/uL Baso # (Auto) 0.0 (0.0-0.1) 10^3/uL Abs Immat Gran (auto) 0.07 H (0.00-0.03) 10^3/uL Imm/Tot Granulo (auto) 0.6 H (0.0-0.5) % Puncture Site Lr ABG pH 7.328 L (7.350-7.450) ABG pCO2 46.1 H (35.0-45.0) mmHg ABG pO2 196.0 H (80.0-100.0) mmHg ABG HCO3 24.1 (22.0-26.0) mmol/L ABG O2 Saturation 100.0 % ABG Base Excess -1.8 (-2.0-2.0) mmol/L Wilner Test Positive (POSITIVE) O2 Liters/Min 15 FiO2 100 % Sodium 144 (136-145) mmol/L Potassium 4.1 (3.5-5.1) mmol/L Chloride 109 H (98-107) mmol/L Carbon Dioxide 24.7 (21.0-32.0) mmol/L Anion Gap 14.4 BUN 46.0 H (7.0-18.0) mg/dL Creatinine 4.27 H (0.70-1.30) mg/dL Est GFR ( Amer) 17 L (>=60 mL/min/1.73m^2) Est GFR (Non-Af Amer) 14 L (>=60 mL/min/1.73m^2) BUN/Creatinine Ratio 10.8 Glucose 282 H (74-106) mg/dL Lactate 1.0 (0.4-2.0) mmol/L Calcium 8.3 L (8.5-10.1) mg/dL Total Bilirubin 0.5 (0.2-1.0) mg/dL AST 30 (15-37) U/L ALT 23 (16-63) U/L Alkaline Phosphatase 119 H (46-116) U/L Troponin I High Sens 22.4 (4.0-76.1) pg/mL NT-Pro-B Natriuret Pep 1958.0 H* (<=900.0) pg/mL Total Protein 6.3 L (6.4-8.2) g/dL Albumin 2.1 L (3.4-5.0) g/dL Globulin 4.2 g/dL Albumin/Globulin Ratio 0.5 Urine Color Lt. yellow (YELLOW) Urine Clarity Clear (CLEAR) Urine pH 6.0 (5.0-9.0) Ur Specific [place] 1.020 (1.005-1.025) Urine Protein >=300 A (NEG/TRACE) mg/dL Urine Glucose (UA) >=1000 A (NEGATIVE) mg/dL Urine Ketones Trace A (NEGATIVE) mg/dL Urine Occult Blood Moderate A (NEGATIVE) Urine Nitrite Negative (NEGATIVE) Urine Bilirubin Negative (NEGATIVE) Urine Urobilinogen 0.2 (0.2-1.0) EU/dL Ur Leukocyte Esterase Negative (NEGATIVE) Urine RBC 2-5 A (0-2) #/HPF Urine WBC 0-2 A (NONE SEEN) #/HPF Ur Squamous Epith Cells Few A (NONE/RARE) #/LPF Urine Crystals None seen (None Seen) #/HPF Urine Bacteria None seen (NONE SEEN) #/HPF Urine Casts Seen A (NONE SEEN) #/LPF Hyaline Casts Rare Urine Mucus Trace A (NONE SEEN) Ur Culture Indicated? No ABG Data Attestation: I personally reviewed and interpreted this ABG as follows: Interpretation: Mild respiratory acidosis Imaging Data Chest x-ray: Radiologist's impression: ITS Impressions Chest X-Ray 08/30/25 21:52 IMPRESSION: Hazy airspace opacities are noted with perihilar vascular prominence bilaterally suggesting congestive heart failure. Impression dictated by: Brandin Cifuentes M.D. 08/30/2025 10:10 PM Dictation Location: [place] [address] Electronically authenticated by: [id number] Y Date: 08/30/2025 22:10 ECG Data Attestation: I personally reviewed and interpreted this ECG as follows: (Atrial fibrillation at 85 bpm, normal axis, Q-wave noted in V1 and V2, low voltage in chest leads, no acute ST segment elevation or T wave inversion) Critical Care Time Critical Care Time Critical Care Time: Yes Total Critical Care Time: 35 Attestation: This patient's presentation with respiratory distress and a high probability of sudden clinically significant deterioration in his condition he required the highest level of my preparedness to intervene urgently. I provided critical care time including documentation time medication orders and management reevaluation vital sign assessment ordering and reviewing of lab tests, x-ray studies and consultation with hospitalist, aggregate critical care time is 35 minutes including only time during which I was engaged in work directly related to his care. Discharge Plan Discharge Chief Complaint: Shortness of Breath/Dyspnea Clinical Impression: Acute exacerbation of CHF (congestive heart failure), BRENDON (acute kidney injury), A-fib Patient Disposition: [facility]
[2025-08-30 22:13] LABS: Hematocrit 28.2 % (42.0-54.0); Hemoglobin 8.8 g/dL (14.0-18.0); Immature Granulocytes Abs Auto 0.07 10^3/uL (0.00-0.03); Immature Granulocytes Pct Auto 0.6 % (0.0-0.5); Lymphocytes Absolute Auto 1.6 10^3/uL (1.2-3.8); Mean Corpuscular HGB Conc 31.2 g/dL (29.9-35.2); Mean Corpuscular Hemoglobin 29.6 pg (25.9-34.0); Mean Corpuscular Volume 94.9 fL (80.0-94.0); Platelet Count 280 10^3/uL (150-450); Red Blood Count 2.97 10^6/uL (4.70-6.10); White Blood Count 11.9 10^3/uL (4.0-11.0)
[2025-08-30] MEDS: FUROSEMIDE 40 MG/4 ML VIAL IVP (22:20)
[2025-08-30 22:22] LABS: Allen Test POSITIVE (POSITIVE)
[2025-08-30 22:24] LABS: HCO3 ABG 24.1 mmol/L (22.0-26.0); Oxygen Saturation ABG 100.0 %; PO2 ABG 196.0 mmHg (80.0-100.0)
[2025-08-30 22:25] LABS: Liters per Minute 15; O2 Mode Non rebreather; Puncture Site LR
[2025-08-30 22:26] LABS: ABG PCO2 46.1 mmHg (35.0-45.0)
[2025-08-30 22:27] LABS: Anion Gap 14.4
[2025-08-30 22:29] LABS: Lactate/Lactic Acid 1.0 mmol/L (0.4-2.0)
[2025-08-30 22:33] LABS: Alanine Aminotransferase 23 U/L (16-63); Albumin Globulin Ratio 0.5; Albumin Level 2.1 g/dL (3.4-5.0); Alkaline Phosphatase 119 U/L (46-116); Aspartate Amino Transferase 30 U/L (15-37); Blood Urea Nitrogen 46.0 mg/dL (7.0-18.0); Calcium 8.3 mg/dL (8.5-10.1); Carbon Dioxide 24.7 mmol/L (21.0-32.0); Chloride 109 mmol/L (98-107); Estimated GFR (African America 17 (>=60 mL/min/1.73m^2); Estimated GFR (Non-African Ame 14 (>=60 mL/min/1.73m^2); Globulin 4.2 g/dL; Glucose 282 mg/dL (74-106); Potassium 4.1 mmol/L (3.5-5.1); Sodium 144 mmol/L (136-145); Total Protein 6.3 g/dL (6.4-8.2)
[2025-08-30 22:40] LABS: Glucose Urine UA >=1000 mg/dL (NEGATIVE)
[2025-08-30 22:41] LABS: NT Pro B Type Natriuretic Pept 1958.0 pg/mL (<=900.0)
[2025-08-30 22:48] LABS: Cast Seen? SEEN #/LPF (NONE SEEN); Crystals Seen? None Seen #/HPF (None Seen); Urine Culture Indicated NO
[2025-08-30] MEDS: MORPHINE SULFATE 4 MG/ML VIAL IV (23:26)
[2025-08-31] VITALS (60 sets, daily range): BP systolic 138–171; BP diastolic 62–85; PULSE 73–92; RESP 12; TEMP 36.3–36.6; O2SAT 83–98; BMI 44.1
[2025-08-31] MEDS: FUROSEMIDE 40 MG/4 ML VIAL IVP ×3 (00:12→13:48)
--- NOTE | 2025-08-31 01:31 | CA_ITS ---
Patient Name: JOSE ELIAS ONEAL MR#: [id number] : 1960 Exam Date: 08/31/2025 Ordering Doctor: GRACE SEGUNDO ECHOCARDIOGRAM REPORT PROCEDURE: CA ECHO DOPPLER COMPLETE INDICATIONS: CHF, diabetes, hypertension COMPARISON: None. DESCRIPTION: COMPLETE ECHOCARDIOGRAM Real-time transthoracic echocardiography with 2D, M-mode, spectral and color flow Doppler performed. QUALITY: Technically difficult due to patients condition. Poor sound transmission. LEFT VENTRICLE: Normal chamber size. Moderate concentric left ventricular hypertrophy. Systolic function is difficult to assess but appears preserved. Visual estimation of left ventricular ejection fraction is 55%. LV EF: Normal left ventricular ejection fraction, (>55%). DIASTOLIC: ATRIAL SEPTUM: LEFT ATRIUM: Poorly visualized. RIGHT ATRIUM: Poorly visualized. RIGHT VENTRICLE: Normal chamber size. Systolic function is difficult to assess but appears normal. TRICUSPID VALVE: Normal mobility and thickness. No stenosis with no regurgitation. MITRAL VALVE: Normal mobility and thickness. No evidence of mitral valve stenosis. There is no mitral annular calcification. No mitral regurgitation. AORTIC VALVE: Normal trileaflet appearance. Mildly calcified aortic valve. Normal leaflet mobility. No aortic regurgitation. AORTIC ROOT: Normal diameter and appearance, measuring 3.8 cm. PULMONIC VALVE: Not well visualized. No stenosis. No regurgitation. PERICARDIUM: No evidence of pericardial effusion. IVC: IVC is dilated (2.5cm), does not collapse. PLEURA: CONCLUSION: 1. Technically difficult study with poor sound transmission reducing the accuracy of the findings. 2. Moderate concentric left ventricular hypertrophy. Left ventricular systolic function is difficult to assess but appears preserved. Estimated LVEF is 55%. 3. The right ventricle appears to be normal in size and exhibits normal systolic function. 4. No apparent significant valvular dysfunction. The valves are poorly visualized. 5. No evidence of pericardial effusion. Adult Echocardiography Procedure Report Left Ventricle LVEDD (3.7 - 5.6 cm): 4.57 cm LVESD (2.2 - 4.0 cm): 3.17 cm LVIVS thickness (0.6 - 1.2 cm): 1.39 cm LVPW thickness (0.5 - 1.0 cm): 1.51 cm e': 0.10 m/s E - e': 5.14 LVOT Max Gradient: 1.91 mm[Hg] LVOT Area (cm2): 0.69 m/s Peak Velocity (LVOT): 0.69 m/s Mean Velocity (LVOT): 0.49 m/s LVOT Diameter 2.13 cm Left Atrium Left Atrium Systolic Dimension: 5.04 cm Mitral Valve MV E to A Ratio: 0.90 Mitral Valve A-Wave Peak Velocity: 0.55 m/s Mitral Valve E-Wave Peak Velocity: 0.50 m/s Right Ventricle Aorta AO Root Diam: 3.82 cm Aortic Valve Tricuspid Valve Pulmonic Valve Peak Velocity: 0.72 m/s Peak Gradient: 2.10 mm[Hg] Right Atrium Dictated by: Samuel Maria M.D. on 08/31/2025 at 18:22 Approved by: Samuel Maria M.D. on 08/31/2025 at 18:28
[2025-08-31] MEDS: NITROGLYCERIN 0.1 MG/HR PATCH.TD24 1 PATCH TD (02:37)
[2025-08-31 05:47] LABS: Hemoglobin 7.2 g/dL (14.0-18.0); Immature Granulocytes Abs Auto 0.10 10^3/uL (0.00-0.03); Immature Granulocytes Pct Auto 0.8 % (0.0-0.5); Lymphocytes Absolute Auto 1.5 10^3/uL (1.2-3.8); Mean Corpuscular HGB Conc 30.5 g/dL (29.9-35.2); Mean Corpuscular Hemoglobin 29.0 pg (25.9-34.0); Mean Corpuscular Volume 95.2 fL (80.0-94.0); Platelet Count 306 10^3/uL (150-450); Red Blood Count 2.48 10^6/uL (4.70-6.10); White Blood Count 12.9 10^3/uL (4.0-11.0)
[2025-08-31 05:53] LABS: INR 1.26; Prothrombin Time 13.1 sec (9.0-11.6)
[2025-08-31 06:23] LABS: Hematocrit 23.6 % (42.0-54.0)
[2025-08-31 07:02] LABS: Anion Gap 13.0; Blood Urea Nitrogen 43.0 mg/dL (7.0-18.0); Calcium 8.0 mg/dL (8.5-10.1); Carbon Dioxide 26.0 mmol/L (21.0-32.0); Chloride 110 mmol/L (98-107); Cholesterol 106 mg/dL (<=200); Estimated GFR (African America 16 (>=60 mL/min/1.73m^2); Estimated GFR (Non-African Ame 14 (>=60 mL/min/1.73m^2); Glucose 149 mg/dL (74-106); HDL Cholesterol 53 mg/dL (40-60); Magnesium 2.0 mg/dL (1.8-2.4); Potassium 4.0 mmol/L (3.5-5.1); Sodium 145 mmol/L (136-145); Thyroid Stimulating Hormone 6.554 uIU/mL (0.358-3.740); Triglycerides 68 mg/dL (<=150); VLDL CHOLESTEROL 13.6 mg/dL
--- NOTE | 2025-08-31 08:00 | ECG_ITS ---
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
[2025-08-31] MEDS: INSULIN ASPART 300 UNIT/3 ML PEN SUBQ ×2 (08:23→12:11)
[2025-08-31] MEDS: CARVEDILOL 6.25 MG TABLET PO (08:36)
[2025-08-31 09:10] LABS: Iron 25.0 ug/dL (65.0-175.0); Percent Iron Saturation 11.6 %; Total Iron Binding Capacity 215.0 ug/dL (250.0-450.0)
[2025-08-31 09:42] LABS: Ferritin 96.0 ng/mL (26.0-388.0)
--- NOTE | 2025-08-31 10:30 | CM.NOTE ---
Rounds made with Dr. Delvalle, pt on BIPAP at this time. Discussed with pt diagnosis and plan of care. Pt awaiting bed at [facility] for transfer. Pt inpatient status.
--- NOTE | 2025-08-31 10:56 | SWNOTE1 ---
Important Message from Medicare reviewed and discussed with patient. Pt. verbalized understanding and signed the form. Original given to patient and copy placed in patient?s chart.
--- NOTE | 2025-08-31 10:58 | SWNOTE1 ---
SW met with pt to review Important Message from Medicare. SW also had a consult for housing/fpc. SW did ask pt if he lived at home and he stated yes. Pt lives with his . SW asked pt if he had any concerns about his home situation. Pt stated no. SW asked if he felt safe at home and he stated yes. SW asked if he had any problems/issues with paying his mortgage or any other bills, pt stated no. At this time pt's plan is to return to his home and he had no concerns about his housing situation. SW to follow as needed. Pt is normally independent at home.
[2025-08-31] MEDS: TRAMADOL HCL 50 MG TABLET PO (12:10)
--- NOTE | 2025-08-31 12:48 | PM.HP ---
HPI H&P: HPI History of Present Illness Chief complaint: other, CHF, CHRONIC KIDNEY DISEASE Narrative: This 64-year-old male with a history of morbid obesity, A-fib, chronic kidney disease, hypertension, diabetes, CHF presented overnight for evaluation of 3 weeks of increasing shortness of breath. The patient does not have a welder gun. Upon EMS arrival he was found to be diffusely wheezing and hypoxic and was given a DuoNeb treatment. He was brought to the emergency department on a nasal cannula. His pulse ox was still in the 80s and [facility] He has diffuse pitting edema from his feet to his upper abdomen. He has diffuse rales and expiratory wheezing with mild increased work of breathing. He does take Lasix. He is also on Xarelto. After the patient was somewhat feeling better he admitted to me that for pain in his left hip which is chronic in nature he takes 1600 mg of ibuprofen at a time. He states he has been told he can take up to 3400 mg of at a time but typically does not take that much. EKG done upon arrival is A-fib at 85 bpm with no acute findings. He was given IV Lasix and an ABG was ordered. He has a mild respiratory acidosis with a arterial pH of 7.328 and pCO2 of 46. He has a normal white count of 11.9 with a mild anemia of 8.8. Platelet count is normal at 280. He has a normal sodium of 144 and potassium of 4.1. CO2 is 24.7. Chloride is 109, BUN is elevated at 46 and creatinine is elevated at 4.27. GFR is 17. Glucose is 282. Troponin is 22.4. BNP is 1958. Chest x-ray was reviewed by radiology and shows cardiomegaly and a pattern of congestive heart failure in keeping with his physical exam. After Lasix and supplemental oxygen the patient has clinically improved. The case was discussed with the hospitalist overnight who feels the patient would benefit from a higher level of care such as [facility]. ER team initiated transfer process to [facility] and pt was accepted pending bed availability. While patient is here, I was told this morning by bedside RN that patient was tachypneic and tachycardic with desaturation for which she was placed on BiPAP with improvement in his symptoms. Patient was initiated on IV Lasix while here with decent urine output so far. Hemodynamically stable on BiPAP and reports feeling better. Opioid HPI Opioid Management Most Recent Pain and Opioid Data: Last Pain Scale 4 Today, 12:10 Last Pain Assessment Today, 02:39 Last MAR Pain Assessment 08/30/25, 23:26 Last ORT Total Score 1 Today, 01:22 Last ORT Risk Category Low Risk Today, 01:22 Review of Systems ROS Status of ROS 10 or more systems reviewed and unremarkable except as noted in history and below PFSH PFSH Medical History GERD (gastroesophageal reflux disease) ?K21.9 - Gastro-esophageal reflux disease without esophagitis (ICD-10) CHF (congestive heart failure) ?I50.9 - Heart failure, unspecified (ICD-10) HTN (hypertension) ?I10 - Essential (primary) hypertension (ICD-10) Type 2 diabetes mellitus ?E11.9 - Type 2 diabetes mellitus without complications (ICD-10) Cervical vertebral fusion ?M43.22 - Fusion of spine, cervical region (ICD-10) Diabetes ?E11.9 - Type 2 diabetes mellitus without complications (ICD-10) Surgical History History of left hip replacement ?Z96.642 - Presence of left artificial hip joint (ICD-10) Family History Father Family history of CHF (congestive heart failure) Family history of hypertension Mother Family history of cancer Family history of hypertension Brother Family history of diabetes mellitus Social History Within the past year, how often did you have a drink containing alcohol: never Within the past year, how often did you have six or more drinks on one occasion: never Score interpretation: A score less than 4 is consistent with normal alcohol consumption. Smoking status: Never smoker Non-prescribed substance use: denies use Previous occupational history: retired Highest level of school completed/degree received: some college, no degree Are you now , , , , never or living with a partner: In a typical week, how many times do you talk on the telephone with family, friends, or neighbors: 3 or more times per week How often do you get together with friends or relatives: 3 or more times per week How often do you attend christianity or worship services: 4 or more times per year Do you belong to any clubs or organizations such as christianity groups unions, fraternal or athletic groups, or school groups: no Total score: 3 Score interpretation: A score of greater than or equal to 2 indicates the lowest level of social isolation. Little interest or pleasure in doing things: not at all Feeling down, depressed, or hopeless: not at all Feel stressed/tense/nervous/anxious/difficulty sleeping: not at all Meds Home Medications and Allergies Home Medications ?Medication ?Instructions ?Recorded ?Confirmed ?Type amlodipine 10 mg tablet 10 mg PO .once daily 05/03/25 08/31/25 History atorvastatin 40 mg tablet 40 mg PO .once daily 05/03/25 08/31/25 History empagliflozin 25 mg tablet 25 mg PO .once daily 05/03/25 08/31/25 History (Jardiance) furosemide 40 mg tablet 40 mg PO .once daily 05/03/25 08/31/25 History amiodarone 200 mg tablet 200 mg PO .QD 08/30/25 08/31/25 History hydralazine 25 mg tablet 25 mg PO TID 08/30/25 08/31/25 History levothyroxine 75 mcg tablet 75 mcg PO .ACB 08/30/25 08/31/25 History pantoprazole 40 mg tablet,delayed 40 mg PO .ACB 08/30/25 08/31/25 History release rivaroxaban 20 mg tablet (Xarelto) 20 mg PO .QD@1700 08/30/25 08/31/25 History albuterol sulfate 90 mcg/actuation 1 inh inhalation Q6H PRN shortness 08/31/25 08/31/25 History aerosol inhaler of breath or wheezing apixaban 5 mg tablet (Eliquis) 5 mg PO BID 08/31/25 08/31/25 History insulin glargine 100 unit/mL (3 80 unit subcut .QD 08/31/25 08/31/25 History mL) subcutaneous pen (Lantus Solostar U-100 Insulin) insulin regular hum U-500 conc 500 20 unit subcut BID 08/31/25 08/31/25 History unit/mL(3 mL) subcut pen (Humulin R U-500 (Conc) Insulin Kwikpen) Allergies Allergy/AdvReac Type Severity Reaction Status Date / Time No Known Drug Allergies Allergy Verified 05/03/25 13:30 Exam Narrative Exam Narrative: Const General: cooperative, wearing BiPAP Eyes: Conjunctiva normal Pulmonary Auscultation: bilateral diffuse crackles, scattered wheezes Cardiovascular Rate: normal rate Rhythm: regular rhythm Heart Sounds: S1 normal, S2 normal and no murmurs GI Inspection: non-distended Palpation: soft, not firm and nontender. No rigidity or rebound. Deferred Neuro General: alert, awake and oriented x3. No obvious new focal deficit Musculoskeletal: normal range of motion Extrem General: no cyanosis, + pedal edema Psych Appearance: appropriate affect. Grossly normal Constitutional Vital Signs, click to edit/add: Last Vital Signs Temp 97.9 F 08/31/25 12:10 Pulse 80 08/31/25 12:10 Resp 19 08/31/25 12:10 BP 171/85 H 08/31/25 07:49 Pulse Ox 83 L 08/31/25 12:00 O2 Del Method BIPAP 08/31/25 08:35 O2 Flow Rate 4 08/31/25 09:40 FiO2 50 08/31/25 11:22 Results Labs Labs: Short CBC 08/30/25 08/31/25 Range/Units 22:00 05:15 WBC 11.9 H 12.9 H (4.0-11.0) 10^3/uL Hgb 8.8 L 7.2 L (14.0-18.0) g/dL Hct 28.2 L 23.6 L* (42.0-54.0) % Plt Count 280 306 (150-450) 10^3/uL BMP 08/30/25 08/31/25 22:00 06:20 Sodium 144 145 Potassium 4.1 4.0 Chloride 109 H 110 H Carbon Dioxide 24.7 26.0 BUN 46.0 H 43.0 H Creatinine 4.27 H 4.43 H Glucose 282 H 149 H Calcium 8.3 L 8.0 L Liver Function 08/30/25 Range/Units 22:00 Total Bilirubin 0.5 (0.2-1.0) mg/dL AST 30 (15-37) U/L ALT 23 (16-63) U/L Alkaline Phosphatase 119 H (46-116) U/L Albumin 2.1 L (3.4-5.0) g/dL Urine 08/30/25 Range/Units 22:25 Urine Color Lt. yellow (YELLOW) Urine Clarity Clear (CLEAR) Urine pH 6.0 (5.0-9.0) Ur Specific [place] 1.020 (1.005-1.025) Urine Protein >=300 A (NEG/TRACE) mg/dL Urine Glucose (UA) >=1000 A (NEGATIVE) mg/dL ABG ABG results: 08/30/25 22:16 ABG pH 7.328 L ABG pCO2 46.1 H ABG pO2 196.0 H ABG HCO3 24.1 ABG O2 Saturation 100.0 ABG Base Excess -1.8 Assessment and Plan Assessment and Plan (1) Acute exacerbation of CHF (congestive heart failure): (2) Acute hypoxic respiratory failure: (3) Acute kidney injury superimposed on CKD: (4) A-fib: Plan Acute hypoxic respiratory failure due to acute CHF exacerbation -Patient with leg edema, shortness of breath, elevated BNP -Chest x-ray showed vascular congestion -Check echocardiogram -Fluid restriction -Low-sodium diet 2g daily -Started IV Lasix -Oxygen supplementation as needed -Monitor electrolytes while on diuretics -Continue BiPAP for now BRENDON on CKD - Patient with worsening BUN/ Cr, clinical picture of fluid overload -Will need nephrology evaluation and management Transfer process has been initiated to [facility] for higher level of care given the complexity and need for specialists onboard for co-management such as nephrology and potential need for dialysis based on response to diuretics. Patient has been accepted and will be transferred to [facility] as bed became available. Discussed with patient at bedside, all questions answered, patient in agreement and comfortable with the plan. Urinary Catheter Management Urinary Catheter Management Urethral: Cath placed during this visit: yes Urethral indwelling: Yes Reason for continuing: measure accurate output Insertion date: 08/30/25 Insertion time: 22:20
[2025-09-01 06:12] LABS: Vitamin B12 763 pg/mL (232-1245)
== END 2025-08-31 14:12 | disposition short-term general hospital (02) | DRG 291 ==
LOC: ER 23:25 → MS 08-31 06:05
PROVIDERS: Admitting Provider Internal Medicine; Emergency Provider Emergency Medicine; PCP Clinical Nurse Specialist Family Health; Visit Provider Internal Medicine
DX: I13.0 Hypertensive heart and chronic kidney disease with heart failure and stage 1 through stage 4 chronic kidney disease, or unspecified chronic kidney disease (principal); I50.33 Acute on chronic diastolic (congestive) heart failure; J96.01 Acute respiratory failure with hypoxia; N17.9 Acute kidney failure, unspecified; Z68.41 Body mass index [BMI] 40.0-44.9, adult; N18.4 Chronic kidney disease, stage 4 (severe); I48.91 Unspecified atrial fibrillation; E66.01 Morbid (severe) obesity due to excess calories; E11.22 Type 2 diabetes mellitus with diabetic chronic kidney disease; Z79.01 Long term (current) use of anticoagulants; Z79.899 Other long term (current) drug therapy; Z79.4 Long term (current) use of insulin; Z79.84 Long term (current) use of oral hypoglycemic drugs; Z96.642 Presence of left artificial hip joint; M25.552 Pain in left hip; G89.29 Other chronic pain
CPT/HCPCS: 36415; 36600; 51701; 51702; 71045; 80048; 80053; 80061; 81001; 82607; 82728; 82805; 82948; 83036; 83540; 83550; 83605; 83735; 83880; 84100; 84443; 84484; 85025; 85610; 93005; 93306; 94660; 94761; 96374; 96375; 96376; 99285; J1938; J2270; J2405

== ENCOUNTER 2025-10-15 13:50 | Outpatient (REF) | payer MEDICARE, SELFPAY ==
--- OUTSIDE RECORDS SUMMARY | 2025-10-10 06:05 | XMS_ITS | Continuity of Care Document ---
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 Role Phone Brennan Easley Serena ELECTROMYOGRAPHIC TECHNICIAN-C Primary Care Provider Megan Valerio MD Admit Provider Rudy Stallworth Other Provider Rachael Carbajal MD Other Provider Manolo Reed MD Other Provider Pilar Abad APRN Other Provider [phone] Dixon Hart MD Other Provider [phone] Parisa Butterfield LPN Other Provider Unavailable Chapincito De La Vega MD Other Provider Toyin Smith ELECTROMYOGRAPHIC TECHNICIAN-C Other Provider Damian Lara MD Other Provider Jarret Schmid MD Other Provider Sam López MD Attending Provider Sam López MD Other Provider Marcus Fowler MD Other Provider Kai Sol MD Other Provider Dixon Hart MD Attending Provider Rudy Stallworth Attending Provider Toyin Smith NP-C Attending Provider Emilio Cisse MD Attending Provider Jarret Schmid MD Attending Provider Care Teams Patient Care Team Team Status: Active Member Role/Relationship Status Dates Brennan Easley , ELECTROMYOGRAPHIC TECHNICIAN-C Primary Care Provider Active Patient Care Team Team Status: Active Member Role/Relationship Status Dates Brennan Easley , ELECTROMYOGRAPHIC TECHNICIAN-C Primary Care Provider Active Start: August 31, 2025 Zoya Fabian ProviderActiveStart: August 31, 2025 Diaz Stallworth MDOther ProviderActiveStart: August 31, 2025 Rachael Carbajal MDOther ProviderActiveStart: August 31, 2025 Manolo Reed MDOther ProviderActiveStart: August 31, 2025 Pilar Abad , APRNOther ProviderActiveStart: August 31, 2025 Dixon Hart MDOther ProviderActiveStart: August 31, 2025 Parisa Butterfield LPNOther ProviderActiveStart: August 31, 2025 Chapincito De La Vega MDOther ProviderActiveStart: August 31, 2025 FRANSISCA PerryCOther ProviderActiveStart: August 31, 2025 Damian Lara MDOther ProviderActiveStart: August 31, 2025 Jarret Schmid MDOther ProviderActiveStart: August 31, 2025 Lukas Herbertending ProviderActiveStart: August 31, 2025 Sam López MDOther ProviderActiveStart: August 31, 2025 Marcus Fowler MDOther ProviderActiveStart: August 31, 2025 Visit Care Team Team Status: Active Member Role/Relationship Status Dates Brennan Easley , ELECTROMYOGRAPHIC TECHNICIAN-C Primary Care Provider Active Start: September 07, 2025 Laura Fabianit ProviderActiveStart: September 07, 2025 Kai Sol MDOther ProviderActiveStart: September 07, 2025 Diaz Stallworth MDOther ProviderActiveStart: September 07, 2025 Rachael Carbajal MDOther ProviderActiveStart: September 07, 2025 Manolo Reed MDOther ProviderActiveStart: September 07, 2025 Pilar Abad , APRNOther ProviderActiveStart: September 07, 2025 Lukas Quinnending ProviderActiveStart: September 07, 2025 Dixon Hart MDOther ProviderActiveStart: September 07, 2025 Parisa Butterfield LPNOt ProviderActiveStart: September 07, 2025 Chapincito De La Vega MDOther ProviderActiveStart: September 07, 2025 Toyin Smith , ELECTROMYOGRAPHIC TECHNICIAN-COther ProviderActiveStart: September 07, 2025 Damian Lara MDOther ProviderActiveStart: September 07, 2025 Jarret Schmid MDOther ProviderActiveStart: September 07, 2025 Sam López MDOther ProviderActiveStart: September 07, 2025 Visit Care Team Team Status: Active Member Role/Relationship Status Dates Brennan Easley , ELECTROMYOGRAPHIC TECHNICIAN-C Primary Care Provider Active Start: September 07, 2025 Lukas Herbertending ProviderActiveStart: September 07, 2025 Patient Care Team Team Status: Active Member Role/Relationship Status Dates Brennan Easley , ELECTROMYOGRAPHIC TECHNICIAN-C Primary Care Provider Active Start: September 07, 2025 Laura Fabianit ProviderActiveStart: September 07, 2025 Diaz Stallworth MDOther ProviderActiveStart: September 07, 2025 Rachael Carbajal MDOther ProviderActiveStart: September 07, 2025 Manolo Reed MDOther ProviderActiveStart: September 07, 2025 Pilar Abad , APRNOther ProviderActiveStart: September 07, 2025 Dixon Hart MDOther ProviderActiveStart: September 07, 2025 Parisa Butterfield LPNOther ProviderActiveStart: September 07, 2025 Chapincito De La Vega MDOther ProviderActiveStart: September 07, 2025 Toyin Smith , ELECTROMYOGRAPHIC TECHNICIAN-COther ProviderActiveStart: September 07, 2025 Damian Lara MDOther ProviderActiveStart: September 07, 2025 Jarret Schmid MDOther ProviderActiveStart: September 07, 2025 Lukas Herbertending ProviderActiveStart: September 07, 2025 Sam López MDOther ProviderActiveStart: September 07, 2025 Marcus Fowler MDOther ProviderActiveStart: September 07, 2025 Visit Care Team Team Status: Active Member Role/Relationship Status Dates Chasady L Freeze , ELECTROMYOGRAPHIC TECHNICIAN-C Primary Care Provider Active Start: September 07, 2025 Lukas Herbertending ProviderActiveStart: September 07, 2025 Visit Care Team Team Status: Active Member Role/Relationship Status Dates Chasady L Freeze , ELECTROMYOGRAPHIC TECHNICIAN-C Primary Care Provider Active Start: September 12, 2025 Lukas Boyerending ProviderActiveStart: September 12, 2025 Visit Care Team Team Status: Inactive Member Role/Relationship Status Dates Chasady L Freeze , ELECTROMYOGRAPHIC TECHNICIAN-C Primary Care Provider Active Start: 2025 End: September 19, 2025Paramjit Perry ProviderActiveStart: 2025 End: 2025 Visit Care Team Team Status: Inactive Member Role/Relationship Status Dates Chasady L Freeze , ELECTROMYOGRAPHIC TECHNICIAN-C Primary Care Provider Active Start: 2025 End: September 19Prosper aDs ProviderActiveStart: 2025 End: 2025 Visit Care Team Team Status: Inactive Member Role/Relationship Status Dates Chasady L Freeze , ELECTROMYOGRAPHIC TECHNICIAN-C Primary Care Provider Active Start: 2025 End: September 19Lukas Dasending ProviderActiveStart: 2025 End: 2025 Visit Care Team Team Status: Inactive Member Role/Relationship Status Dates Chasady L Freeze , ELECTROMYOGRAPHIC TECHNICIAN-C Primary Care Provider Active Start: October 03, 2025 End: October 03, 2025Lukas Phanending ProviderActiveStart: October 03, 2025 End: October 03, 2025 Patient Care Team Team Status: Active Member Role/Relationship Status Dates Chasady L Freeze , ELECTROMYOGRAPHIC TECHNICIAN-C Primary Care Provider Active Start: October 09, 2025 Prosper Cardenas ProviderActiveStart: October 09, 2025 Jarret Schmid MDOther ProviderActiveStart: October 09, 2025 Chief Complaint and Reason for Visit Chief Complaint Admit Date DEVORA Renal Failure August 31, 2025 3 :32pm DEVORA Renal Failure September 07, 2025 1 2:00am DEVORA Renal Failure September 07, 2025 1 :08pm hosp f/u HD access and charlene 2025 7:47am N18.5 2025 7 :48am I70.213 2025 7 :55am sent for dx 10/08October 03, 2025 8:53am ESRD October 09, 2025 11:08am Reason for Visit Admit Date A-fib August 31, 2025 3 :32pm Acute on chronic diastolic (congestive) heart failure August 31, 2025 3:32pm Acute respiratory failure with hypoxia a nd hypercarbia August 31, 2025 3:32pm Anemia of renal disease August 31 3:32pm CKD (chronic kidney disease) stage 5, GFR less than 15 ml/min August 31, 2025 3:32pm Diabetic foot ulcer August 31, 2025 3 :32pm ESRD on dialysis August 31, 2025 3 :32pm HTN (hypertension) August 31, 2025 3 :32pm T2DM (type 2 diabetes mellitus) August 31, 2025 3:32pm Type 2 diabetes mellitus wit h diabetic peripheral angiopathy without gangrene August 31, 2025 3:32pm Type 2 diabetes mellitus with diabetic p olyneuropathy August 31, 2025 3:32pm ESRD on dialysis 2025 7 :47am Pressure ulcer 2025 7 :47am Reason for Referral Type Reason(s) Provider Provider [facility] Start Date Please follow up in office in 3-4 weeks. Please call for appoitnment.Please follow provided instructions.Please follow up in office in 3-4 weeks. Please call for appoitnment.Jarret Schmid MDWork Phone: [phone] [address] [address]Lvdsuu follow provided instructions.[facility] Work Phone: [phone] Shannen Smith A [facility] [address]Yxhung call the office to reschedule this appointment if this time does not work for you. Please call with additional questions or concerns. Thank you.Noreen Wallace MDWork Phone: [phone] [facility], [address] [place] [address]Qny have been scheduled for a follow up appointment for the following date and time, please call to reschedule if needed.Brennan Easley NP-CWork Phone: [phone] [facility] [place] [address] Allergies, Adverse Reactions, Alerts Allergen Type Severity Reaction Last Updated Verified Status No Known Allergies Allergy Unknown October 09, 2025 11:50amYesActive Social History Smoking Status Status Start Date End Date Date of Observa tion Never smoked tobacco (finding) October 09, 2025 12:18pm Observation Status Observation Response Date of Response Legal Sex [facility] (finding) [facility] Social History Assessments Assessment Value Date Recorded SDOH Follow up September 11, 2025 2:25pmQuestionAnswerDate RecordedHas the SDOH screening changed since admission?NOctober 2024 2:25pm Family History Relationship Condition Age at Onset Recorded Date/T aguila father Diabetes mellitus Unknown Heart diseaseUnknownDeceasedUnknownmotherDiabetes mellitusUnknownHeart disease UnknownDeceasedUnknownbrotherDiabetes mellitusUnknown Problems Active Problems Problem Diagnosis/Recorded Date Onset Date Stat Type 2 diabetes mellitus wit h diabetic polyneuropathy May 05, 2025 9:42am Unknown Active Type 2 diabetes mellitus wit h diabetic peripheral angiopathy without gangrene May 05, 2025 9:43am Unknown Active T2DM (type 2 diabetes mellitus) May 03, 2025 8:32pm Unknown Active Diabetic foot ulcer May 03, 2025 8:36pm Unknown Active CHF (congestive heart failure) May 03, 2025 8:35pm Unknown Active Metabolic encephalopathy May 03, 2025 8:36pm Unknow n Active A-fib May 03, 2025 8:37pm Unknown Activ e Acute respiratory failure wi th hypoxia and hypercarbia May 03, 2025 8:37pm Unknown Active CKD (chronic kidney disease) stage 5, GFR less than 15 ml/min September 01, 2025 6:27am Unknown Active ESRD on dialysis September 07, 2025 10:17am Unknown Active Pressure ulcer 2025 11:13am Unknown Active Anemia of renal disease September 02, 2025 12:56pm Unk nown Active Acute on chronic diastolic ( congestive) heart failure September 01, 2025 6:26am Unknown Active HTN (hypertension) May 03, 2025 8:33pm Unknown Active Inactive/Resolved Problems Problem Diagnosis/Recorded Date Onset Date Stat BRENDON (acute kidney injury) May 03, 2025 8:38pm Unkno wn Resolved CHF exacerbation May 05, 2025 10:11am Unknown Resolved Suicidal ideation May 07, 2025 12:16pm Unknown Resolved Acute kidney injury superimp osed on chronic kidney disease May 05, 2025 10:10am Unknown Resolved Sepsis May 03, 2025 8:39pm Unknown Resol mis Medications Medication Status Dose Units Route Directions Qty Days Refills S tart Date Stop Date End Date Reason(s) Instructions Adherence Albuterol Sulfate 90 mcg/act uation aerosol powdr breath activated Discontinued 2 INH INHALATION Daily May 02, 2025 [facility] 20[facility] 2:53pmAllopurinol 300 mg tablet Loiafwojuwei448GPGAMbyxkSonk 2024 11:00pmJuly 2024 12:33pm Amitriptyline 25 mg qxbbsgOljlxcvisnxu90DTJOQqgsuDxkg 18th, 2025 11:00pmJuly 2024 12:33pmAmlodipine 10 mg wefcxlBtmubyvsjbbu00YIHXQzphpQccs 18th, 2025 11:00pmJu2024 12:33pmAtorvastatin 40 mg jairnaUomqva94GTWMIyjdi at bedtimeF[facility]2024 11:00pmComplies with drug therapyCarvedilol 25 mg tablet Wzxljmixeegq85LFELHakkx dailyJun2024 11:00pmOctbaptist health [facility] 2024 2:48pm must administer with a meal/foodEmpagliflozin (Jardiance) 25 mg tablet Qtkanjxrbgir57EEIMZcxdjScnu 18th, 2025 11:00pmOctb[facility]ist health [facility] 2024 2:08pm Furosemide 40 mg vuiiljTfvrbvxazbae44WEGRObpzvAlhn 18th, 2025 11:00pmOctbaptist health [facility] 2024 2:08pmGabapentin 300 mg jrwejywJlvhadcyoiun417BYNJEuclgGxwa 18th, 2025 11:00pmJuly 2024 12:33pmLosartan 25 mg lstbttMnfgjvxahcem24KZJJOwqnr May 02, 2025 11:00pmOctober 2024 2:49pmMetformin 500 mg tablet Jwdqsefabuda3738MJHV.with lunchMay 02, 2025 11:00pmJuly 2024 12:33pm Potassium Chloride (Klor-Con M20) 20 mEq tablet,ER particles/crystals Cixvhzghbhlb36GGWBLVimefGbna 18th, 2025 11:00pmJuly 2024 12:33pmInsulin Aspart U-100 100 unit/mL (3 mL) insulin hqlOwvybamgtuwt4vhcmhfc scale doseSUBCUT As DirectedJun2024 11:00pmJuly 2024 12:33pmInsulin Regular Hum U- 500 Conc (Humulin R U-500 (Conc) Insulin) 500 unit/mL frzlxrjxYykqqvhveync90GGAJ SUBCUT.breakfast and dinnerMay 03, 2025 11:00pmJuly 2024 12:33pm Amiodarone 200 mg RzkyejIxcwjjowesom782TLZKRprno lyzupwl55097Otik 23rd, 2025 11:00pmNov2024 11:55amSpironolactone 25 mg McxcbbDaxgkgdltwib42IERO Twice ridju06087SijcMay 09, 2025 11:00pmOct2024 2:53pmQuetiapine 25 mg ElkfsqJxdbnpowhxnl37KCKQHhwil as needed for Lapwrczcb37Pqan 29th, 2025 11:00pm August 31, 2025 2:54pmMagnesium Oxide 400 mg (241.3 mg magnesium) Tablet Algymelbragg788JOAOPcioe kqebp62267MctgMay 13, 2025 11:00pmOct2024 2:54pmInsulin Aspart U-100 100 unit/mL (3 mL) Insulin QaqOabxne7VQWLHZZZXB5V/Day with meals and bedtime Protocol: *If the corrective scale dose has been administered within the past 4 hours, do not use corrective scale again unless approved by prescriber* Condition: Corrective Scale #2 (TDI 26-50 UNITS) Condition: Dose/Route: Instructions: Condition: Fingerstick Blood Glucose Dose/Route: Insulin Units Condition: 150-199 mg/dl Dose/Route: 2 unit Condition: 200-249 mg/dl Dose/Route: 3 unit Condition: 250-299 mg/dl Dose/Route: 5 unit Condition: 300-349 mg/dl Dose/Route: 7 unit Condition: 350-399 mg/dl Dose/Route: 8 unit Condition: greater than or = 400 mg/dl Dose/Route: 9 unit Instructions: Call Ojyqizjh10Zfzc2024 11:00pmPlease contact the information source for Protocol details.Complies with drug therapyAmlodipine 10 mg IpzsblPhoaybkodssq70UNPXJnund87509Ppvx 30th, 2025 11:00pmNov2024 11:55amApixaban (Eliquis) 5 mg YdactpCizvurycwwwl5MDZEDabcp rwogk07248CejnMay 14, 2025 11:00pmOct2024 2:48pmQuetiapine 25 mg whvqgaAgfmaqcmnnzl73.5MGPO Twice suoek77465Ztup2024 11:00pmOct2024 2:49pmHydralazine 25 mg xipozxXidznepzwbun75STOZDbvfv times zqgay8700Bumc2024 11:00pmOct2024 2:53pmInsulin Glargine (Lantus Solostar U-100 Insulin) 100 unit/mL (3 mL) insulin nasWyfscs21NOANRSJMSTQobbt rdzwy258PrjpMay 14, 2025 11:00pmComplies with drug therapyPantoprazole 40 mg tablet,delayed release (DR/EC)Apslwegstbtu77 MGPOTwice dhbbk752XbvmMay 14, 2025 11:00pmOct2024 2:08pmPen Needle, Diabetic (Ulticare Pen Needle) 31 gauge x 3/16 AawabnKbgpyp9085Orwb 30th, 2025 11:00pmsliding scale novolog ACHSsliding scale novolog ACHSAmiodarone 200 mg QylurzPlccui506DSIYHfamv eveningOctober 09, 2025 12:00amComplies with drug therapyAmlodipine 10 mg OffmvmYmfcrp10BEZFDgkxe 2024 12:00amComplies with drug therapyCalcium Polycarbophil (Fiber (Calcium Polycarbophil)) 625 mg gxluhuFjvexl8276CRCVOtjqs dailyOctbaptist health [facility] 2024 11:00pm Complies with drug therapyMultivitamin (Daily Multi-Vitamin) heesupOiagbx5OAKOP DailyOctbaptist health [facility] 2024 11:00pmComplies with drug therapyLevothyroxine 75 mcg yckskbhJbtbkr07FCPDCKeyohEnehptt 2024 11:00pmComplies with drug therapy Rivaroxaban (Xarelto) 20 mg cbbjmfMgixizdnyncr37RJAWJpyphUsazugd 2024 11:00pmOctbaptist health [facility] 2024 2:08pmmust administer with evening mealHydralazine 25 mg csfkdvXebkie87EWWXFjxpm times dailyOct2024 11:00pmComplies with drug therapyCarvedilol 12.5 mg ExwxltIoseio90.5MGPOTwice daily with vnvpv87094 September 10, 2025 11:00pmComplies with drug therapyApixaban (Eliquis) 5 mg HavskaEhzozp3EAUUQwtzl wkgtp836729Kstfswv 2024 11:00pmComplies with drug therapyPantoprazole 40 mg tablet,delayed release (DR/EC)Kedpqt29LETNEemuu452 September 11, 2025 1:17pmComplies with drug therapy Medical Equipment Device Date Implanted Device Details Double-lumen haemodialysis c atheter, implantable September 07, 2025 [place]: [id number] Issuing Agency: [employer] Device Id: [id number] Expiration Date: 2030-04-14 Lot Number: [id number] Procedures Procedure Date Performed Status US ankle/arm indices 2025 7:56am c ompleted US map hemodial access JOCE 2025 7: 56am completed Relevant Diagnostic Tests and/or Laboratory Data Laboratory Results Test Collection Date/Time Result Date/Time Result Interpretation Reference Range Result Comment Performing Site Prothrombin Time October 03, 2025 8:53am September 152024 9:25am See comment 9.0-12.9--- 10/03/25923 ---PT previously reported as: 16.2 H Seconds A hematocrit value greater than 55% may lead to inaccurate results in coagulation testing. Patients having hematocrit values >55% require a special collection tube for coagulation studies. Please contact the laboratory at [phone] for redraw instructions.[facility] [id number] [address] [place] [address]Srktfyqka Time International RatioNovember 2024 8:53am October 03, 2025 9:25amSee comment--- 10/03/25923 ---INR previously reported as: 1.4 INR Therapeutic Range A) Pre- and PeroperativeOAT started two weeks before surgery. NOT HIP SURGERY: 1.5 - 2.5 HIP SURGERY: 2 - 3B) Primary and secondary prevention of venous THROMBOSIS: 2 - 3C) Active venous thrombosis, pulmonary embolismand prevention of recurrent venous thrombosis: 2 - 3D) Prevention of arterial thromboembolismincluding patients with mechanical heart valves: 3 - 4.5FHigh[facility] [id number] [address] [place] [address]Ajcfynplj Partial Thromboplast TimeOctober 03, 2025 8:53am October 03, 2025 9:25amSee rtxiiqc93.1-36.5--- 10/03/25924 ---PTT previously reported as: 39.1 H Seconds A hematocrit value greater than 55%may lead to inaccurate results in coagulation testing. Patients having hematocrit values >55% require a special collection tube for coagulation studies. Please contact the laboratory at [phone] for redraw instructions.[facility] [id number] [address] [place] [address] Diagnostic Imaging Reports Author Sam López [facility] HospitalAuthoredSeptember 19, 2025 5:38pmReportDictated Date/TimeDictated ByStatusRadiology ReportSeptember 19, 2025 5:38pmNoreen Wallace [facility]ompK[facility] [address] [place], [place] [id number] Ultrasound Report Signed Patient: Chapincito Chilel MR#: [id number] : 1960 Acct:[id number] Age/Sex: 65 / M ADM Date: 5 Loc: [facility] Room: Type: [facility] Attending Dr: Sam López MD Ordering Provider: Sam López MD Date of Service: 09/19/25 US/US ankle/arm indices: I70.213 - Atherosclerosis of [place] arteries of extremiti... Copies to: Sam López MD~ LOWER EXTREMITY SEGMENTAL ARTERIAL DOPSCAN (PVR) INDICATION: Bilateral leg wounds PROCEDURE: Right arm blood pressure is 161 , left is 170 . Pressures at the right ankle are 175 using the posterior tibial artery, and 168 using the dorsalis pedis artery with ankle-brachial index of 1.03 0.99 . Pressures at the left ankle are 216 using the posterior tibial artery, and 191 with ankle-brachial index of 1.27 1.12 . Wave forms by plethysmography are normal. US/US ankle/arm indices IMPRESSION: NO HEMODYNAMICALLY SIGNIFICANT PERIPHERAL VASCULAR OCCLUSIVE DISEASE AT REST IN EITHER LOWER EXTREMITY. Impression dictated by: Sam López M.D. 2025 5:39 PM Dictation Location: [place] [address] Tech: Tiara Scruggs Transcribed By: [facility] 09/19/25 173 Dictated By: Sam López MD 09/19/25 1738 Signed By: <Electronically signed by Sam López MD in OV> 09/19/25 1739 Author Sam López [facility] HospitalAuthoredNovember 2024 5:39pmReportDictated Date/TimeDictated ByStatusRadiology ReportNov2024 5:39pmNoreen Wallace [facility] [address] [place], [place] [id number] Ultrasound Report Signed Patient: Chapincito Chilel MR#: [id number] : 1960 Acct:[id number] Age/Sex: 65 / M ADM Date: 5 Loc: [facility] Room: Type: [facility] Attending Dr: Sam López MD Ordering Provider: Sam López MD Date of Service: 09/19/25 US/US map hemodial access JOCE: N18.6 - End stage renal disease Copies to: Sam López MD~ Bilateral upper extremity superficial vein mapping INDICATION: end-stage renal disease on dialysis PROCEDURE: Color-flow and B-mode duplex scanning were used to interrogate the superficial venous system of both upper extremities. In the right upper extremity, the right basilic vein measured 0.3, 0.6 in the upper arm and 0.15, 2.25 in the distal arm. In the right cephalic vein, the measurements were from 0.23, 2.5 to throughout the upper arm. The right axillary vein was patent and measures 1.8 cm. The right subclavian vein is patent. The brachial artery on the right side is 0.51 cm. Radial artery is 0.27 cm. There was a proximal bifurcation of the brachial artery. In the left upper extremity, the left basilic vein measured 0.7 cm proximally but tapers down to 0.26 cm in the mid upper arm and then less than 0.14 cm throughout the rest of the arm. The left cephalic vein was small measuring less than 0.2 cm there was the course. The axillary vein was patent measuring 0.9 cm. Left subclavian vein is patent. The left brachial artery was measured 0.41 cm. There was a proximal bifurcation of the brachial artery. US/US map hemodial access JOCE IMPRESSION: Vein mapping as described above. There is adequate vein and the basilic and cephalic in the right upper extremity dialysis access creation. Impression dictated by: Sam López M.D. 2025 5:42 PM Dictation Location: RAD-DOC-04 Tech: Lucille Mares Transcribed By: TESSIE 09/19/251741 Dictated By: Sam López MD 09/19/251738 Signed By: <Electronically signed by Sam López MD in OV> 09/19/25 174 Vital Signs Vital Reading Result Reference Range Collection Date/Time Height 70 [in_i] September 07, 2025 10:91nhZyprmi783.20 kgOct2024 4:05amBody Ktcseixqorm66.0 [degF]97.6-99.0Oct2024 3:00pmHeart Rate68 /bkl12-685 September 11, 2025 3:00pmRespiratory rate16 /lyb31-75Syqoyfe 28th, 2025 3:00pm Oxygen saturation by Pulse xhldcqai06 %95-100Oct2024 3:00pmBP Ncpemlyu223 mm[Hg]100-140September 11, 2025 3:00pmBP Ubzoglljj40 mm[Hg]60-100 September 11, 2025 3:00pmInhaled oxygen concentration1 %September 10, 2025 12:00pmInhaled oxygen flow rate2 L/minM[facility] 2024 11:35azZlzexr81.5 [in_i]2025 9:17zcAofrko821.53 kgNov2024 9:00amBody Fubwwjtixak34.2 [degF]97.6-99.0September 19, 2025 9:00amHeart Rate64 /evm57-331 2025 9:00amRespiratory rate16 /ocb73-83PhhcfxvhSeptember 19, 2025 9:00am Oxygen saturation by Pulse %95-100September 19, 2025 9:00amBP Mciberze167 mm[Hg]100-140September 19, 2025 9:00amBP Phzaqyyon70 mm[Hg]60-100 2025 9:00amBMI (Body Mass Index)36.6 kg/o8XnmlbkqlSeptember 19, 2025 9:24lwMmbndi82 [in_i]October 09, 2025 12:64jqVgevtu468.66 kgNov2024 12:18pmBody Ulbsueuiyze83.9 [degF]97.6-99.0October 09, 2025 3:43pmHeart Rate62 /kzw73-863JlynukibOctober 09, 2025 4:45pmRespiratory rate18 /nek04-37VmuyrrouOctober 09, 2025 4:45pmOxygen saturation by Pulse vjgpeyxo55 %95-100October 09, 2025 4:45pmBP Atibcvvk912 mm[Hg]100-140Nov2024 4:45pmBP Ycrdirxoa97 mm[Hg]60-100Nov2024 4:45pmInhaled oxygen flow rate0 L/minOctober 09, 2025 3:53pm Advance Directives Advance Directive Response Recorded Date/ Time Advance Directives No May 03 5:24pm Insurance Providers Guarantor Chapincito Chilel Address [address] [facility] [address] Info.Home Phone: Coverage Status Update:2025 Payer Group Member ID Coverage Type Subscriber Relationship to Subscriber Effective Date Expiration Date Medicaid [id number] [place] Id: [id number] [address] [facility] [address] Home Phone: SelfMedicare [id number] [place] Id: [id number] [address] [facility] [address] Home Phone: Self Encounters Encounter Location(s) Arrival/Admit Date Discharge/Departure Date Discharge/Departure Disposition Provider(s) Non-patient / [facility]-visit -[facility] [facility] August 31, 2025 3:32pm Noreen Wallace-patient / Dnh-vynmi-[facility] 2024 12:00amNoreen Chirinos-patient / Rgt-yitux-[facility]October 2024 11:15amBNoreen Gonzales-patient / Gat-qevfu-[facility]October 2024 1:08pmNoreen Wallace-patient / Wcr-nvmpb-[facility]rbbkqesr [facility]October 2024 1:10pmNoreen Wallace-patient / Fgd[facility]ide[facility] 20[facility] 4:00amAKATHERINE Franklineparted Physician/Provider Office Visit- [facility]Nov2024 7:47amNovember 2024 9:26am Discharged to home care or self care (routine discharge)Toyin Smith APRN [facility]ed Clinical[facility] 7:48am 2025 7:49amDischarged to home care or self care (routine discharge)Noreen Wallace MDDeparted Clinical-Ultrasound [facility] 2025 7:55amNovember 2024 7:56amDischarged to home care or self care (routine discharge)Noreen Wallace MDDeparted Clinical-Lab [facility] October 03, 2025 8:53amNovember 2024 8:54amDischarged to home care or self care (routine discharge)Emilio Pratt MDNon-patient / Non-visit- [facility] 2024 11:08Marilyn Schmid MD Recent Diagnosis Onset Date Admit Date A-fib Unknown August 31 3:32pm Acute on chronic diastolic ( congestive) heart failure Unknown August 31, 2025 3:32pm Acute respiratory failure wi th hypoxia and hypercarbia Unknown August 31, 2025 3:32pm Anemia of renal disease Unknown August 31, 2025 3:32pm CKD (chronic kidney disease) stage 5, GFR less than 15 ml/min Unknown August 31, 2025 3:32pm Diabetic foot ulcer Unknown August 3:32pm ESRD on dialysis Unknown August 31, 2 025 3:32pm HTN (hypertension) Unknown August 31, 2025 3:32pm T2DM (type 2 diabetes mellitus) Unknown August 31, 2025 3:32pm Type 2 diabetes mellitus wit h diabetic peripheral angiopathy without gangrene Unknown August 31, 2 025 3:32pm Type 2 diabetes mellitus wit h diabetic polyneuropathy Unknown August 31, 2025 3:32pm ESRD on dialysis Unknown September 19, 2 025 7:47am Pressure ulcer Unknown September 19 7:47am Assessments Diagnosis Onset Date Resolution Status Admit Date A-fib acuteOct2024 3:32pmAcute on chronic diastolic (congestive) heart failureacuteOctober 2024 3:32pmAcute respiratory failure with hypoxia and hypercarbiaacuteOctober 2024 3:32pmAnemia of renal diseaseacuteOctober 2024 3:32pmCKD (chronic kidney disease) stage 5, GFR less than 15 ml/min acuteOctober 2024 3:32pmDiabetic foot ulceracuteOctober 2024 3:32pm ESRD on dialysisacuteOctober 2024 3:32pmHTN (hypertension)acuteOctober 2024 3:66ofY6WG (type 2 diabetes mellitus)acuteOctober 2024 3:32pm Type 2 diabetes mellitus with diabetic peripheral angiopathy without gangrene acuteOctober 2024 3:32pmType 2 diabetes mellitus with diabetic polyneuropathyacuteOctober 2024 3:32pmESRD on dialysisacuteNov2024 7:47amPressure ulceracuteNov2024 7:47am Plan of Treatment Author Toyin Smith [facility] 11:15amThis patient is currently on hemodialysis through a left IJ tunneled catheter which functions well for him. We reviewed his bilateral upper extremity vein mapping which shows good options for autologous fistula creation. This patient is ambidextrous. Discussed recommendation for right upper extremity AV fistula creation. Discussed procedure, risk, benefits and all questions were addressed. We reviewed the access creation handout. Dr. López in the room to further evaluate and discuss options for access creation cimeno versus brachiobasilic fistula were discussed. Right upper extremity AV fistula creation will be scheduled in the near future. Consent was obtained. Will get him on the schedule in the near future. Patient and family verbalized understanding of our discussion today and agree with this plan. Deny additional questions. We discussed his noninvasive arterial studies today which show adequate blood supply for healing to bilateral lower extremities. He did go on to heal the right leg ulcer that he previously had a hospital however he does have additional healing ulcers to posterior legs bilaterally which appear to be pressure related in nature. We discussed the importance of proper pressure relief and ongoing wound care. He will continue with his wound care the same as managed by his home health care team. We also discussed the importance of consistency with wound care, proper nutritional support, and diabetic management and the importance with overall wound healing. Future Tests Future scheduled test information is unavailable Pending Tests Pending diagnostic test information is unavailable Future Visits Future appointment information is unavailable Future Procedures Procedure Name Ordered Date Scheduled Date Discharge Order October 09, 2025 3:43pm Novem benita 2024 3:43pm Initiate Home Health September 11, 2025 2:07pm DME Home Medical EquipmentOct2024 2:04pmConsult to Sleep LabOct2024 4:16pmOct2024 4:16pmDiet SupplementOct2024 12:07pmOct2024 12:07pmAdmit Status OrderAugust 31, 2025 2:40pm August 31, 2025 2:40pmDischarge OrderOct2024 2:09pmOct2024 2:09pmConsult to NephrologyOct2024 2:49pmOct2024 2:51pmConsult to PhysiatryOctober 2024 8:26amOct2024 8:26am Consult to Vascular SurgeryOct2024 8:15amOct2024 8:15am Future Medications Future medication information is unavailable Patient Instructions Instruction Admit Date Know your Meds August 31, 2025 3 :32pm Caring for a closed surgical wound Lowering the risk of a surgical site infection [facility] 20[facility] 11:08am
--- OUTSIDE RECORDS SUMMARY | 2025-10-15 13:54 | XMS_ITS | Clinical Summary ---
Author Organization [facility] Address [address] [place] [address] Care Team Providers Care Vice President Network Development Name Role Phone Unavailable Primary Care Provider Unavailabl e Social History Tobacco UseTypesPacks/DayYears UsedDateSmoking Tobacco: Never AssessedSex and Gender InformationValueDate RecordedSex Assigned at YpzmbThml71/26/2025 1:36 PM ESTLegal QyaMvdb7005/13/2022 9:23 PM EDTGender MgalyjinCiva29/26/2025 1:36 PM EST Sexual OrientationHeterosexual or Iwpvpdiw65/26/2025 1:36 PM EST Plan of Treatment DateTypeDepartmentCare Team (Latest Contact Info)Bjvvvptpgzf75/02/2025 11:15 AM ESTOffice Visit [facility] [address] [place] [address] Eugenio Mai MD [address] [place] [address] Health MaintenanceDue DateLast DoneCommentsCT Plnqndrpewio1960Colonoscopy 1960Colorectal Cancer Etkzxvtfz1960Diabetes: Hemoglobin A1C 1960FIT-DNA1960FIT1960FOBT1960Medicare Annual Wellness (AWV)1960Medicare Initial Physical (IPPE)1960 4846Vaameefilnakw1960 Diabetes: Retinopathy Uvkjiqrzm02/05/1970Depression Mjlyiitst59/05/1972Diabetes: Urine Protein Ukblwcytg82/05/1979Pneumococcal Vaccine: 50+ Years (1 of 2 - PCV) 1979Adult Mdkquwi3609/19/1982Zoster Vaccines (1 of 2)2010COVID-19 Vaccine (2 - 2024- season)Influenza Vaccine (#1)2025 Fall Risk Yioizjbzz09/05/2025HIB VaccinesAged OutNo longer eligible based on patient's age to complete this topicHPV VaccinesAged OutNo longer eligible based on patient's age to complete this topicIPV VaccinesAged OutNo longer eligible based on patient's age to complete this topicMeningococcal B VaccineAged OutNo longer eligible based on patient's age to complete this topicMeningococcal VaccineAged OutNo longer eligible based on patient's age to complete this topic Rotavirus VaccinesAged OutNo longer eligible based on patient's age to complete this topic Insurance
--- OUTSIDE RECORDS SUMMARY | 2025-10-15 13:54 | XMS_ITS | Clinical Summary ---
Author Organization [facility] Address [address] [place] [address] Phone Care Team Providers Care Cat Tender Name Role Phone Unavailable Primary Care Provider Unavailabl e Social History Tobacco UseTypesPacks/DayYears UsedDateSmoking Tobacco: Never AssessedSex and Gender InformationValueDate RecordedSex Assigned at BirthNot on fileLegal Sex Male05/04/2025 3:44 PM EDTGender IdentityNot on fileSexual OrientationNot on file Plan of Treatment Not on file
== END 2025-10-15 13:51 | disposition home or self-care (01) ==
LOC: LAB 13:50
PROVIDERS: PCP Clinical Nurse Specialist Family Health; Visit Provider Internal Medicine
DX: L03.119 Cellulitis of unspecified part of limb (principal)
CPT/HCPCS: 36415; 87040